=== PATIENT | female | born 1980 | race Caucasian/White ===

== ENCOUNTER → 2016-11-08 | Outpatient (CLI) | payer OTHER ==
[2016-04-09 13:38] VITALS: BP 112/55
[~2016-11-08] MED LIST: CLIN150C14 PO; CLON0.5T3 PO; TOPI25TA52 PO; VALS40TA2 PO
--- NOTE | 2016-11-08 12:38 | RAD ---
Lumbar spine 3 views 10/31/2016 Clinical indication: Low back pain. Comparison: MRI lumbar spine 08/24/2015 Findings: Normal lumbar alignment. No acute lumbar spine fracture or subluxation. Vertebral body heights and disc spaces are maintained. Right upper quadrant cholecystectomy clips. Impression: No acute lumbar spine fracture or subluxation.
== END | disposition home or self-care (01) ==
LOC: RAD 11:35
PROVIDERS: ATTEND Family Medicine
DX: M54.5 Low back pain (principal)
CPT/HCPCS: 72100

== ENCOUNTER 2017-01-09 12:29 | Emergency (ER) | payer OTHER ==
[~2017-01-09] VITALS: Ht 157.5 cm; Wt 94.3 kg
--- NOTE | 2017-01-09 13:12 | PHYS DOC ---
Past Medical History Past Medical History: Anxiety, Hypertension, Hypothyroid, Other Additional Past Medical Histor: obesity, chronic back pain, dental pain Past Surgical History: Cholecystectomy, Tubal ligation, Other Additional Past Surgical Histo: D&C Alcohol Use: Rarely Drug Use: None Adult General Chief Complaint Chief Complaint: ABDOMINAL PAIN HPI HPI Patient is a 36 year old female who presents with nausea vomiting left lower quadrant abdominal pain. She states all this started pressure 20 minutes prior to arrival to the ER. She states the pain was severe and she had come to the ER. She states she is close to having her menstrual cycle every menstrual cycle she's having is more more painful. She denies any diarrhea. She states she's minus all some blood in her vomit that was approximately a tablespoon. She states that she is very stressed out because she started a new job and she has a history of chronic back pain that she takes hydrocodone's for and over the last 3 weeks having take more and more hydrocodone for back pain. Review of Systems Review of Systems Constitutional: Denies fever or chills [] Eyes: Denies change in visual acuity, redness, or eye pain [] HENT: Denies nasal congestion or sore throat [] Respiratory: Denies cough or shortness of breath [] Cardiovascular: No additional information not addressed in HPI [] GI: Denies abdominal pain, nausea, vomiting, bloody stools or diarrhea [] : Denies dysuria or hematuria [] Musculoskeletal: Denies back pain or joint pain [] Integument: Denies rash or skin lesions [] Neurologic: Denies headache, focal weakness or sensory changes [] Endocrine: Denies polyuria or polydipsia [] Current Medications Current Medications Current Medications Medications (Trade) Dose Ordered Sig/Clayton Start Time Stop Time Status Last Admin Dose Admin Lorazepam (Ativan) 0.5 mg 1X ONCE 01/09/17 13:45 01/09/17 13:46 DC 01/09/17 14:25 0.5 MG Morphine Sulfate 2 mg PRN Q15MIN PRN 01/09/17 13:45 Ondansetron HCl (Zofran) 4 mg 1X ONCE 01/09/17 13:15 01/09/17 13:24 DC 01/09/17 13:50 4 MG Potassium Chloride (Klor-Con) 40 meq 1X ONCE 01/09/17 15:45 01/09/17 15:46 DC Sodium Chloride 1,000 ml @ 1,000 mls/hr Q1H 01/09/17 13:13 01/09/17 14:12 DC 01/09/17 13:50 1,000 MLS/HR Allergies Allergies Allergies Coded Allergies Type Severity Reaction Last Updated Verified acetaminophen Allergy Unknown Rash 06/04/15 Yes amoxicillin trihydrate Allergy Unknown Hives 10/14/13 Yes potassium clavulanate Allergy Unknown Hives 10/14/13 Yes propoxyphene Allergy Unknown Rash 06/04/15 Yes tramadol HCl Allergy Unknown Hives 10/14/13 Yes Physical Exam Physical Exam Constitutional: Well developed, well nourished, no acute distress, non-toxic appearance. [] HENT: Normocephalic, atraumatic, bilateral external ears normal, oropharynx moist, no oral exudates, nose normal. [] Eyes: PERRLA, EOMI, conjunctiva normal, no discharge. [] Neck: Normal range of motion, no tenderness, supple, no stridor. [] Cardiovascular:Heart rate regular rhythm, no murmur [] Lungs & Thorax: Bilateral breath sounds clear to auscultation [] Abdomen Pelvic Exam: Radiography Technician present Abdomen: Nontender External Genitalia: Normal Skin Speculum: Normal vaginal mucosa, normal cervical discharge Bimanual: No adnexal masses or tenderness, No CMT : Bowel sounds normal, soft, no tenderness, no masses, no pulsatile masses. [] Skin: Warm, dry, no erythema, no rash. [] Back: No tenderness, no CVA tenderness. [] Extremities: No tenderness, no cyanosis, no clubbing, ROM intact, no edema. [] Neurologic: Alert and oriented X 3, normal motor function, normal sensory function, no focal deficits noted. [] Psychologic: Affect normal, judgement normal, mood normal. [] Current Patient Data Vital Signs Vital Signs Date Time Temp Pulse Resp B/P (MAP) Pulse Ox O2 Delivery O2 Flow Rate FiO2 01/09/17 13:51 29 96 Room Air 01/09/17 12:53 97.4 76 113/58 (76) 97.4 Lab Values Laboratory Tests Test 01/09/17 12:53 01/09/17 13:06 01/09/17 13:26 Urine Collection Type Void Urine Color Yellow Urine Clarity Clear Urine pH 6.0 Urine Specific [place] 1.025 Urine Protein Negative mg/dL (NEG-TRACE) Urine Glucose (UA) Negative mg/dL (NEG) Urine Ketones (Stick) Negative mg/dL (NEG) Urine Blood Large (NEG) Urine Nitrite Negative (NEG) Urine Bilirubin Negative (NEG) Urine Urobilinogen Dipstick 0.2 mg/dL (0.2 mg/dL) Urine Leukocyte Esterase Large (NEG) Urine RBC Rare /HPF (0-2) Urine WBC Occ /HPF (0-4) Urine Squamous Epithelial Cells Many /LPF Urine Bacteria Many /HPF (0-FEW) Urine Mucus Marked /LPF POC Urine HCG, Qualitative Hcg negative (Negative) White Blood Count 9.9 x10^3/uL (4.0-11.0) Red Blood Count 4.42 x10^6/uL (3.50-5.40) Hemoglobin 13.3 g/dL (12.0-15.5) Hematocrit 38.9 % (36.0-47.0) Mean Corpuscular Volume 88 fL (79-100) Mean Corpuscular Hemoglobin 30 pg (25-35) Mean Corpuscular Hemoglobin Concent 34 g/dL (31-37) Red Cell Distribution Width 13.8 % (11.5-14.5) Platelet Count 340 x10^3/uL (140-400) Neutrophils (%) (Auto) 45 % (31-73) Lymphocytes (%) (Auto) 40 % (24-48) Monocytes (%) (Auto) 11 % (0-9) H Eosinophils (%) (Auto) 3 % (0-3) Basophils (%) (Auto) 0 % (0-3) Neutrophils # (Auto) 4.5 x10^3uL (1.8-7.7) Lymphocytes # (Auto) 4.0 x10^3/uL (1.0-4.8) Monocytes # (Auto) 1.1 x10^3/uL (0.0-1.1) Eosinophils # (Auto) 0.3 x10^3/uL (0.0-0.7) Basophils # (Auto) 0.0 x10^3/uL (0.0-0.2) Prothrombin Time 14.3 SEC (11.7-14.0) H Prothrombin Time INR 1.2 (0.8-1.1) H PTT 36 SEC (24-38) Sodium Level 138 mmol/L (136-145) Potassium Level 2.4 mmol/L (3.5-5.1) *L Chloride Level 98 mmol/L (98-107) Carbon Dioxide Level 32 mmol/L (21-32) Anion Gap 8 (6-14) Blood Urea Nitrogen 11 mg/dL (7-20) Creatinine 0.6 mg/dL (0.6-1.0) Estimated GFR (Cockcroft-Gault) 113.1 Glucose Level 125 mg/dL (70-99) H Calcium Level 8.6 mg/dL (8.5-10.1) Magnesium Level 1.9 mg/dL (1.8-2.4) Total Bilirubin 0.4 mg/dL (0.2-1.0) Direct Bilirubin 0.1 mg/dL (0.0-0.2) Aspartate Amino Transferase (AST) 32 U/L (15-37) Alanine Aminotransferase (ALT) 26 U/L (14-59) Alkaline Phosphatase 66 U/L (46-116) Creatine Kinase 348 U/L (26-192) H Total Protein 7.3 g/dL (6.4-8.2) Albumin 3.8 g/dL (3.4-5.0) Lipase 134 U/L (73-393) Laboratory Tests 01/09/17 13:26 Laboratory Tests 01/09/17 13:26 Microbiology 01/09/17 Wet Prep - Final, Complete Microbiology 01/09/17 Wet Prep - Final, Complete EKG EKG [] Radiology/Procedures Radiology/Procedures [facility] [address] [place] [address] IMAGING REPORT Signed PATIENT: NAYA FLOYD ACCOUNT: [id number] : 1980 LOCATION: ER AGE: 36 SEX: F EXAM STATUS: REG ER ORD. PHYSICIAN: MARII MORATAYA MD REASON: llq pain PROCEDURE: PELVIS W/TV EXAM: Pelvic ultrasound HISTORY: Left pelvic pain. COMPARISON: None. FINDINGS: Sonographic evaluation of the pelvis was performed transabdominally and transvaginally. The uterus is anteverted and measures 8.4 x 5.6 x 4.5 cm. The endometrial stripe measures 9 mm. A linear echogenicity adjacent to the deep surface of the endometrium at the fundus measures 2.0 x 0.4 cm and suggests a calcification. No masses are identified. There is no significant free fluid. The right ovary measures 3.3 x 2.6 x 1.9 cm. The left ovary measures 4.6 x 4.7 x 4.6 cm. There is a simple appearing cyst in left ovary measuring 4.4 x 4.0 x 3.8 cm. There is normal Doppler flow bilaterally. There are no suspicious lesions. IMPRESSION: 1. 4.4 x 4.0 cm simple appearing cyst in the left ovary. This is most likely benign. A follow could confirm resolution in 3 months if there is persistent concern. 2. 2.0 x 0.4 cm calcification within the uterine fundus, likely benign. DICTATED and SIGNED BY: TANNER THOMPSON MD DATE: 01/09/17 [id number] CC: MARII MORATAYA MD; LISSETTE ZAVALA MD ~ RUN DATE: 01/09/17 PAGE 1 RUN TIME: [id number] [facility] [address] [place] [address] Seymour Win M.D., Registered Dental Assistant PATIENT: NAYA FLOYD ACCT: [id number] LOC: ELVA U : [id number] AGE/SX: 36/F ROOM: REG : 01/09/[address]: MARII MORATAYA MD : 1980 BED: DIS : STATUS: [facility] TLOC: SPEC #: [id number] GUIDO: 01/09/17 STATUS: LUCY REQ #: [id number] RECD: 01/09/17 [facility] [place] DR: MARII MORATAYA MD SOURCE: VAGINAL ENTR: 01/09/[address]: LISSETTE ZAVALA MD [facility]: ORDERED: WET PREP COMMENTS: Has specimen been collected/obtained? Y Procedure Result WET PREP Final YEAST NONE SEEN TRICHOMONAS NONE SEEN CLUE CELLS CLUE CELLS PRESENT END OF REPORT Impressions: Hypokalemia Abdominal pain Chronic pain Course & Med Decision Making Course & Med Decision Making Pertinent Labs and Imaging studies reviewed. (See chart for details) Patient's potassium is 2.4 and I suggested she get admitted and spoke with Dr. Lala regarding admission. The patient has changed her mind and doesn't want to be admitted once a sign out AGAINST MEDICAL ADVICE. IV potassium was deleted and 40 mg by mouth was given and she's being discharged home with 40 mEq daily for the next 3 days. This should all 4.0 her magnesium level is normal. Patient was instructed return back to ER if she had any other concerns or changed her mind. She does have clue cells on her wet prep and she's being discharged with 7 days of Flagyl. I do not appreciate that she has a urinary tract infection based on her UA and/or symptoms. Dragon Disclaimer Dragon Disclaimer This electronic medical record was generated, in whole or in part, using a voice recognition dictation system. Departure Departure Disposition: AGAINST MEDICAL ADVICE Condition: STABLE Referrals: LISSETTE ZAVALA MD (PCP) Patient Instructions: Hypokalemia Additional Instructions: Your potassium level is extremely low it was recommended that he be admitted to the hospital have this replaced however you and decided to leave AGAINST MEDICAL ADVICE. Explained to you that you could have severe weakness and muscle rate down or other abnormalities because of your low potassium level. You stated you understood these risks and are willing to accept them and have signed the AGAINST MEDICAL ADVICE form. Your being sent home with prescriptions for potassium replacement that you will need to take over the next several days. You will need to call Dr. Blair's office and schedule a follow-up appointment with her. If your symptoms get worse, you have extreme weakness, or change her mind, or have other concerns please return back to the emergency department. You do have bacterial vaginosis based on your exam and you will need take Biaxin next 7 days. Please don't drink any alcohol this medicine as it will make you sick. Scripts Metronidazole (FLAGYL) 500 Mg Tablet 1 TAB PO BID, #14 TAB Prov: MARII MORATAYA MD 01/09/17 Potassium Chloride (POTASSIUM CHLORIDE) 20 Meq Tablet.er 40 MEQ PO DAILY for 3 Days, #6 TAB.SR Prov: MARII MORATAYA MD 01/09/17 MARII MORATAYA MD Jan 09, 2017 13:12
[2017-01-09] MEDS ORDERED: IV NORMAL SALINE 1000ML BAG 1,000 ML IV SCH (13:13)
[2017-01-09] MEDS ORDERED: ONDANSETRON PF 4 MG/2 ML VIAL. IV ONE (13:15)
[2017-01-09 13:35] LABS: BASO % 0 % (0-3); EOS % 3 % (0-3); HEMATOCRIT 38.9 % (36.0-47.0); HEMOGLOBIN 13.3 g/dL (12.0-15.5); LYMPH % 40 % (24-48); MEAN CORPUSCULAR HEMOGLOBIN 30 pg (25-35); MEAN CORPUSCULAR HGB CONC 34 g/dL (31-37); MEAN CORPUSCULAR VOLUME 88 fL (79-100); MONO % 11 % (0-9); NEUT % 45 % (31-73); PLATELET COUNT 340 x10^3/uL (140-400); RED BLOOD COUNT 4.42 x10^6/uL (3.50-5.40); RED CELL DISTRIBUTION WIDTH 13.8 % (11.5-14.5); WHITE BLOOD COUNT 9.9 x10^3/uL (4.0-11.0)
[2017-01-09] MEDS ORDERED: MORPHINE SULFATE 4 MG/ML DISP.SYRIN. IV PRN (13:45)
[2017-01-09] MEDS ORDERED: MORPHINE SULFATE 4 MG/ML DISP.SYRIN. IV/SQ PRN (13:45)
[2017-01-09 13:47] LABS: INR 1.2 (0.8-1.1); PROTHROMBIN TIME PATIENT 14.3 SEC (11.7-14.0)
[2017-01-09 13:53] LABS: BILIRUBIN,URINE NEGATIVE (NEG); GLUCOSE,URINE NEGATIVE (NEG); NITRITE,URINE NEGATIVE (NEG); PROTEIN,URINE NEGATIVE (NEG-TRACE); UROBILINOGEN,URINE 0.2 mg/dL (0.2 mg/dL)
[2017-01-09 13:56] LABS: ALBUMIN 3.8 g/dL (3.4-5.0); CALCIUM 8.6 mg/dL (8.5-10.1); CREATININE 0.6 mg/dL (0.6-1.0); DIRECT BILIRUBIN 0.1 mg/dL (0.0-0.2); GFR 113.1; TOTAL BILIRUBIN 0.4 mg/dL (0.2-1.0); TOTAL PROTEIN 7.3 g/dL (6.4-8.2)
[2017-01-09 14:01] LABS: POTASSIUM 2.4 mmol/L (3.5-5.1)
[2017-01-09 14:06] LABS: BACTERIA,URINE MANY /HPF (0-FEW); RBC,URINE RARE /HPF (0-2); SQUAMOUS EPITHELIAL CELL,UR MANY /LPF; WBC,URINE OCC /HPF (0-4)
--- NOTE | 2017-01-09 14:47 | RAD ---
EXAM: Pelvic ultrasound HISTORY: Left pelvic pain. COMPARISON: None. FINDINGS: Sonographic evaluation of the pelvis was performed transabdominally and transvaginally. The uterus is anteverted and measures 8.4 x 5.6 x 4.5 cm. The endometrial stripe measures 9 mm. A linear echogenicity adjacent to the deep surface of the endometrium at the fundus measures 2.0 x 0.4 cm and suggests a calcification. No masses are identified. There is no significant free fluid. The right ovary measures 3.3 x 2.6 x 1.9 cm. The left ovary measures 4.6 x 4.7 x 4.6 cm. There is a simple appearing cyst in left ovary measuring 4.4 x 4.0 x 3.8 cm. There is normal Doppler flow bilaterally. There are no suspicious lesions. IMPRESSION: 1. 4.4 x 4.0 cm simple appearing cyst in the left ovary. This is most likely benign. A follow could confirm resolution in 3 months if there is persistent concern. 2. 2.0 x 0.4 cm calcification within the uterine fundus, likely benign.
[2017-01-09] MEDS ORDERED: POTASSIUM CHLORIDE 10MEQ 100 ML IV SCH (15:00)
[2017-01-09 15:30] VITALS: BP 100/59
[2017-01-09] MEDS ORDERED: POTASSIUM CHLORIDE 20 MEQ TABLET.ER. PO ONE (15:45)
[2017-01-09] MEDS ORDERED: POTA20TA82 PO (15:47)
[2017-01-09] MEDS ORDERED: METR500T PO (15:52)
[2017-01-09] MEDS ORDERED: LEVO75TA5 PO (23:15)
[2017-01-09] MEDS ORDERED: LOSA100T6 PO (23:17)
[2017-01-09] MEDS ORDERED: HYDR-2766 PO (23:17)
[2017-01-09] MEDS ORDERED: CLON0.5T3 PO (23:17)
--- NOTE | 2017-01-13 14:51 | VNOTE ---
CALL BACK NOTE CALL BACK Microbiology 01/09/17 Wet Prep - Final, Complete 01/09/17 Urine Culture - Final, Complete 01/09/17 Urine Culture Result 1 (ROME) - Final, Complete 01/09/17 Antimicrobic Susceptibility - Final, Complete Call placed to patient's contact information provided during her visit on 2016. Patient did not answer phone. Left directions for patient to call back [facility] on her voicemail in order to discuss culture results and also provided a contact phone number the patient can contact us at. JAKY WELLS Jan 13, 2017 14:51
--- NOTE | 2017-01-14 13:12 | VNOTE ---
CALL BACK NOTE CALL BACK Microbiology 01/09/17 Wet Prep - Final, Complete 01/09/17 Urine Culture - Final, Complete 01/09/17 Urine Culture Result 1 (ROME) - Final, Complete 01/09/17 Antimicrobic Susceptibility - Final, Complete Spoke with patient via phone at around noon on January 14, 2017 at [place] emergency department. Will prescribe ciprofloxacin 500 mg. Take one tablet every 12 hours 7 days. Dispensed 14 tablets. No refills. Pharmacy # . Discussed follow-up with outpatient PCP. Discussed reasons to return to the ED. Patient understands and agrees with plan. JAKY WELLS Jan 14, 2017 13:12
== END 2017-01-09 16:00 | disposition left against medical advice (07) ==
LOC: ER 12:29
DX: R10.32 Left lower quadrant pain (principal); E87.6 Hypokalemia; G89.29 Other chronic pain; I10 Essential (primary) hypertension; E03.9 Hypothyroidism, unspecified; E66.9 Obesity, unspecified; Z68.38 Body mass index [BMI] 38.0-38.9, adult; Z90.49 Acquired absence of other specified parts of digestive tract; Z98.51 Tubal ligation status; Z88.6 Allergy status to analgesic agent; Z88.1 Allergy status to other antibiotic agents; Z88.8 Allergy status to other drugs, medicaments and biological substances
CPT/HCPCS: 36415; 76830; 76856; 80048; 80076; 81001; 81025; 82550; 83690; 83735; 85025; 85610; 85730; 87086; 87186; 87491; 87591; 96361; 96374; 96375; 99285; J2060; J2270; J2405; J7030; Q0111

== ENCOUNTER 2017-01-09 20:00 | Observation (INO) | payer OTHER ==
[~2017-01-09] VITALS: Ht 157.5 cm; Wt 95.7 kg
[~2017-01-09 20:00] MED LIST changes: +METR500T PO; +POTA20TA82 PO
--- NOTE | 2017-01-09 20:51 | PHYS DOC ---
Past Medical History Past Medical History: Anxiety, Hypertension, Hypothyroid, Kidney Stone, Other Additional Past Medical Histor: obesity, chronic back pain, dental pain Past Surgical History: Cholecystectomy, Tubal ligation, Other Additional Past Surgical Histo: D&C Alcohol Use: Occasionally Drug Use: None Adult General Chief Complaint Chief Complaint: HYPOKALEMIA HPI HPI Patient is a 36 year old complains of myalgias and malaise" and "feeling sick" . Patient was seen earlier in the day and this ED and found to be hypokalemic. Patient was advised that she was can be admitted for potassium infusion but the patient decided to leave AGAINST MEDICAL ADVICE. The patient now has changed her mind and returns for admission. She has no new complaints. Review of Systems Review of Systems Constitutional: Denies fever or chills [] Eyes: Denies change in visual acuity, redness, or eye pain [] HENT: Denies nasal congestion or sore throat [] Respiratory: Denies cough or shortness of breath [] Cardiovascular: No chest pain GI: Denies , nausea, vomiting, bloody stools or diarrhea . Low abdominal pain Musculoskeletal: Muscle aches Integument: Denies rash or skin lesions [] Neurologic: Denies headache, focal weakness or sensory changes [] Endocrine: Denies polyuria or polydipsia [] Allergies Allergies Allergies Coded Allergies Type Severity Reaction Last Updated Verified acetaminophen Allergy Unknown Rash 06/04/15 Yes amoxicillin trihydrate Allergy Unknown Hives 10/14/13 Yes potassium clavulanate Allergy Unknown Hives 10/14/13 Yes propoxyphene Allergy Unknown Rash 06/04/15 Yes tramadol HCl Allergy Unknown Hives 10/14/13 Yes Physical Exam Physical Exam Constitutional: Well developed, well nourished, no acute distress, non-toxic appearance. [] HENT: Normocephalic, atraumatic, oropharynx moist, no oral exudates, nose normal. [] Eyes: EOMI, conjunctiva normal, no discharge. [] Neck: Normal range of motion, no tenderness, supple, no stridor. [] Cardiovascular:Heart rate regular rhythm, no murmur him a go pulses, normal perfusion Lungs & Thorax: Bilateral breath sounds clear to auscultation, no tachypnea Abdomen: Bowel sounds normal, soft, very mild tenderness low abdomen without guarding or rebound, no masses, no pulsatile masses. [] Skin: Warm, dry, no erythema, no rash. [] Back: No tenderness, no CVA tenderness. No murmur range of motion Extremities: No tenderness, no cyanosis, ROM intact, no edema. [] Neurologic: Alert and oriented X 3, normal motor function, no focal deficits noted. [] Psychologic: Affect normal, judgement normal, mood normal. [] Current Patient Data Vital Signs Vital Signs Date Time Temp Pulse Resp B/P (MAP) Pulse Ox O2 Delivery O2 Flow Rate FiO2 01/09/17 20:09 98.0 77 16 107/56 (73) 98 Room Air 98.0 EKG EKG 2018 77, no normal sinus rhythm, no STEMI[] Radiology/Procedures Radiology/Procedures [] Course & Med Decision Making Course & Med Decision Making Pertinent Labs and Imaging studies reviewed. (See chart for details) [] Dragon Disclaimer Dragon Disclaimer This electronic medical record was generated, in whole or in part, using a voice recognition dictation system. Departure Departure Impression: Primary Impression: Hypokalemia Additional Impression: Myalgia Disposition: ADMITTED INPATIENT Admitting Physician: Josey Lala Condition: STABLE Referrals: LISSETTE ZAVALA MD (PCP) Problem Qualifiers Key MAY MD Jan 09, 2017 20:51
[2017-01-09] MEDS ORDERED: ONDANSETRON PF 4 MG/2 ML VIAL. IV PRN (21:00)
[2017-01-09] MEDS ORDERED: MORPHINE SULFATE 4 MG/ML DISP.SYRIN. IV PRN (21:15)
[2017-01-09] MEDS ORDERED: IBUPROFEN 400 MG TABLET. PO ONE (21:30)
[2017-01-09 23:00] VITALS: BP 98/52
[2017-01-09] MEDS ORDERED: LEVO75TA5 PO (23:15)
[2017-01-09] MEDS ORDERED: CLON0.5T3 PO (23:17)
[2017-01-09] MEDS ORDERED: LOSA100T6 PO (23:17)
[2017-01-09] MEDS ORDERED: HYDR-2766 PO (23:17)
[2017-01-10] MEDS ORDERED: INFLUENZA VAX SCREEN BY RX. MC ONE
[2017-01-10 03:14] VITALS: BP 93/53
[2017-01-10 04:43] LABS: BASO # 0.1 x10^3/uL (0.0-0.2); BASO % 1 % (0-3); EOS % 3 % (0-3); HEMATOCRIT 37.5 % (36.0-47.0); HEMOGLOBIN 12.4 g/dL (12.0-15.5); LYMPH # 3.3 x10^3/uL (1.0-4.8); LYMPH % 29 % (24-48); MEAN CORPUSCULAR HEMOGLOBIN 30 pg (25-35); MEAN CORPUSCULAR HGB CONC 33 g/dL (31-37); MEAN CORPUSCULAR VOLUME 90 fL (79-100); MONO % 9 % (0-9); NEUT % 59 % (31-73); PLATELET COUNT 335 x10^3/uL (140-400); RED BLOOD COUNT 4.19 x10^6/uL (3.50-5.40); RED CELL DISTRIBUTION WIDTH 13.6 % (11.5-14.5); WHITE BLOOD COUNT 11.2 x10^3/uL (4.0-11.0)
[2017-01-10 04:57] LABS: CALCIUM 8.2 mg/dL (8.5-10.1); CREATININE 0.7 mg/dL (0.6-1.0); GFR 94.7; POTASSIUM 3.4 mmol/L (3.5-5.1)
[2017-01-10 07:00] VITALS: BP 100/60
--- NOTE | 2017-01-10 07:17 | EKG ---
[facility] [address] [place] [address] Test Date: 2017-01-09 Test Time: 20:12:03 Pat Name: NAYA FLOYD Department: Room: Gender: F Back End Developer: : 1980 Requested By: Key MAY Order Number: [id number] Reading MD: Measurements Intervals [place] Rate: 77 P: 33 IN: 134 QRS: 24 QRSD: 92 T: 51 QT: 422 QTc: 480 Interpretive Statements SINUS RHYTHM QRS(T) CONTOUR ABNORMALITY CANNOT RULE OUT ANTEROSEPTAL MYOCARDIAL DAMAGE PROLONGED QT RI6.01 Unconfirmed report No previous ECG available for comparison
[2017-01-10] MEDS ORDERED: LOSARTAN POTASSIUM 50 MG TABLET. PO SCH (09:00)
[2017-01-10] MEDS ORDERED: FLU VACC QS2017-18 (36MOS+)/PF 0.5 ML SYRINGE. VAX IM ONE (09:00)
[2017-01-10] MEDS ORDERED: clonazePAM 0.5 MG TABLET PO PRN (09:00)
[2017-01-10] MEDS ORDERED: HYDROcodone/APAP 10/325 1 TAB TABLET PO PRN (09:00)
[2017-01-10] MEDS ORDERED: LEVOTHYROXINE 75 MCG TABLET PO SCH (10:30)
[2017-01-10 11:08] VITALS: BP 114/64
--- NOTE | 2017-01-10 12:26 | PDOC3 ---
DATE OF ADMISSION Date of Admission 01/09/17 DATE OF DISCHARGE Discharge Date 01/10/17 PROBLEM LIST Problems: (1) Hypokalemia CONSULTS Consults none PROCEDURES Procedures none LABS Labs Laboratory Tests Test 01/10/17 04:26 White Blood Count 11.2 x10^3/uL (4.0-11.0) Red Blood Count 4.19 x10^6/uL (3.50-5.40) Hemoglobin 12.4 g/dL (12.0-15.5) Hematocrit 37.5 % (36.0-47.0) Mean Corpuscular Volume 90 fL (79-100) Mean Corpuscular Hemoglobin 30 pg (25-35) Mean Corpuscular Hemoglobin Concent 33 g/dL (31-37) Red Cell Distribution Width 13.6 % (11.5-14.5) Platelet Count 335 x10^3/uL (140-400) Neutrophils (%) (Auto) 59 % (31-73) Lymphocytes (%) (Auto) 29 % (24-48) Monocytes (%) (Auto) 9 % (0-9) Eosinophils (%) (Auto) 3 % (0-3) Basophils (%) (Auto) 1 % (0-3) Neutrophils # (Auto) 6.6 x10^3uL (1.8-7.7) Lymphocytes # (Auto) 3.3 x10^3/uL (1.0-4.8) Monocytes # (Auto) 1.0 x10^3/uL (0.0-1.1) Eosinophils # (Auto) 0.3 x10^3/uL (0.0-0.7) Basophils # (Auto) 0.1 x10^3/uL (0.0-0.2) Sodium Level 142 mmol/L (136-145) Potassium Level 3.4 mmol/L (3.5-5.1) Chloride Level 105 mmol/L (98-107) Carbon Dioxide Level 32 mmol/L (21-32) Anion Gap 5 (6-14) Blood Urea Nitrogen 11 mg/dL (7-20) Creatinine 0.7 mg/dL (0.6-1.0) Estimated GFR (Cockcroft-Gault) 94.7 Glucose Level 125 mg/dL (70-99) Calcium Level 8.2 mg/dL (8.5-10.1) MEDICATIONS Medications Medications reviewed and reconciled for discharge. CHEIF COMPLAINT Cheif Complaint she presented to the ER with abdominal pain and was found to have an ovarian cyst but was noted to be severely hypokalemic and brought into the hospital for potassium replacement and cardiac monitoring. This am her K+ is 3.4 and her cardiac nurse has been NSR. She is taking PO well and not having any diarrhea or vomiting to suggest there will be ongoing potassium loss. She has been dieting and losing weight PAST MEDICAL HISTORY PMH hypothyroidism, obesity, chronic pain, hx of seizures (last 2009), anxiety/ depression, psoriasis PAST SURGICAL HISTORY PSH joshua, miscarriage x 4 SOCIAL HISTORY SH , former smoker FAMILY HISTORY FH mother , father and brother A&W ALLERGIES Allergies Allergies Coded Allergies Type Severity Reaction Last Updated Verified amoxicillin trihydrate Allergy Intermediate Hives 01/09/17 Yes potassium clavulanate Allergy Intermediate Hives 01/09/17 Yes propoxyphene Allergy Intermediate Rash 01/09/17 Yes tramadol HCl Allergy Intermediate Hives 01/09/17 Yes MEDICATIONS Meds Medications reviewed. REVIEW OF SYSTEMS ROS A 14 point ROS was completed with the following noted as positive: left ovarian pain Other systems reviewed and negative. PHYSICAL EXAM Subjective LLQ pain now controlled, eating, slept well, no chest pain or SOA or other new symptoms Objective A&O NAD HRRR, monitor NSR without arrhythmia LCTA Abd with mild LLQ tenderness skin without rash Strength normal Vital Signs Vital Signs Date Time Temp Pulse Resp B/P (MAP) Pulse Ox O2 Delivery O2 Flow Rate FiO2 01/10/17 11:08 98.6 89 20 114/64 (81) 98 Room Air 98.6 Assessment hypokalemia [facility] NOTE [facility] Note as above FOLLOW UP F/U [address] Blair DISPOSITION Dispo home after another po dose of potassium this am, outpatient f/u of labs and ovarian cyst Gracie RICHTER MD Jan 10, 2017 12:26
[2017-01-10] MEDS ORDERED: POTASSIUM CHLORIDE 10 MEQ TABLET.ER. PO ONE (14:30)
== END 2017-01-10 12:00 | disposition home or self-care (01) ==
LOC: ER 20:00 → 6 SOUTH 20:46
PROVIDERS: ADMIT Family Medicine; ATTEND Family Medicine
DX: E87.6 Hypokalemia (principal); N83.209 Unspecified ovarian cyst, unspecified side; E03.9 Hypothyroidism, unspecified; E66.9 Obesity, unspecified; G89.29 Other chronic pain; I10 Essential (primary) hypertension; F41.9 Anxiety disorder, unspecified; Z87.442 Personal history of urinary calculi; Z87.891 Personal history of nicotine dependence; Z23 Encounter for immunization
CPT/HCPCS: 36415; 80048; 85025; 90471; 90686; 93005; 96374; 99285; G0378; J2270; G0379

== ENCOUNTER 2018-02-15 12:39 | Emergency (ER) | payer OTHER ==
[~2018-02-15] VITALS: Ht 157.5 cm; Wt 79.4 kg
[~2018-02-15 12:39] MED LIST changes: +CLON0.5T11 PO; -CLON0.5T3 PO; +HYDR-2766 PO; +LEVO75TA5 PO; +LOSA100T7 PO
[2018-02-15 12:53] VITALS: BP 130/68
[2018-02-15 13:25] LABS: BILIRUBIN,URINE NEGATIVE (NEG); CLARITY,URINE CLEAR; COLOR,URINE YELLOW; NITRITE,URINE NEGATIVE (NEG); PROTEIN,URINE NEGATIVE (NEG-TRACE); UROBILINOGEN,URINE 0.2 mg/dL (0.2 mg/dL)
[2018-02-15 13:40] LABS: BACTERIA,URINE 0 /HPF (0-FEW); RBC,URINE 0 /HPF (0-2); SQUAMOUS EPITHELIAL CELL,UR FEW /LPF; WBC,URINE 0 /HPF (0-4)
[2018-02-15] MEDS ORDERED: METH4TAB2 PO (14:05)
[2018-02-15] MEDS ORDERED: CYCL10TA2 PO (14:05)
--- NOTE | 2018-02-15 14:05 | PHYS DOC ---
Past Medical History Past Medical History: Anxiety, Hypertension, Hypothyroid, Kidney Stone, Other Additional Past Medical Histor: obesity, chronic back pain, dental pain Past Surgical History: Cholecystectomy, Tubal ligation, Other Additional Past Surgical Histo: D&C Alcohol Use: Occasionally Drug Use: None Adult General Chief Complaint Chief Complaint: BACK PAIN - NO INJURY HPI HPI Patient is a 37 year old female with history of hypertension, anxiety, hypothyroidism, who presents today complaining of intermittent episodes of 7 out of 10 sharp bilateral mid back pain that has been going on since January after she lifted a heavy tot at work. Patient states the pain is worse when she tries to lift anything above her head. Patient states she was seen at [facility], she states they did not do any x-rays because they thought her information was too high to her back. Patient states she followed up with [facility]. She states she was evaluated. She states she has continued to have the pain. Patient denies any nausea vomiting. Denies any pain radiating to bilateral lower extremities. Denies any loss of bowel bladder function. She is also requesting we check her urine to make sure she does not have a kidney infection. She has no urgency frequency dysuria. Review of Systems Review of Systems Constitutional: Denies fever or chills [] Eyes: Denies change in visual acuity, redness, or eye pain [] HENT: Denies nasal congestion or sore throat [] Respiratory: Denies cough or shortness of breath [] Cardiovascular: No additional information not addressed in HPI [] GI: Denies abdominal pain, nausea, vomiting, bloody stools or diarrhea [] : Denies dysuria or hematuria [] Musculoskeletal: Reports mid back pain. Integument: Denies rash or skin lesions [] Neurologic: Denies headache, focal weakness or sensory changes [] All other systems were reviewed and found to be within normal limits, except as documented in this note. Current Medications Current Medications Current Medications Medications (Trade) Dose Ordered Sig/Clayton Start Time Stop Time Status Last Admin Dose Admin Acetaminophen/ Hydrocodone Bitart (Lortab 5/325) 1 tab 1X ONCE 02/15/18 14:15 02/15/18 14:16 Cyclobenzaprine HCl (Flexeril) 10 mg 1X ONCE 02/15/18 14:15 02/15/18 14:16 Allergies Allergies Allergies Coded Allergies Type Severity Reaction Last Updated Verified amoxicillin trihydrate Allergy Intermediate Hives 01/09/17 Yes potassium clavulanate Allergy Intermediate Hives 01/09/17 Yes propoxyphene Allergy Intermediate Rash 01/09/17 Yes tramadol HCl Allergy Intermediate Hives 01/09/17 Yes Physical Exam Physical Exam Constitutional: Well developed, well nourished, no acute distress, non-toxic appearance. [] HENT: Normocephalic, atraumatic, bilateral external ears normal, oropharynx moist, no oral exudates, nose normal. [] Eyes: PERRLA, EOMI, conjunctiva normal, no discharge. [] Neck: Normal range of motion, no tenderness, supple, no stridor. [] Cardiovascular:Heart rate regular rhythm, no murmur [] Lungs & Thorax: Bilateral breath sounds clear to auscultation [] Abdomen: Bowel sounds normal, soft, no tenderness, no masses, no pulsatile masses. [] Skin: Warm, dry, no erythema, no rash. [] Back: No tenderness, no CVA tenderness. [] Extremities: No tenderness, no cyanosis, no clubbing, ROM intact, no edema. [] Neurologic: Alert and oriented X 3, normal motor function, normal sensory function, no focal deficits noted. [] Psychologic: Affect normal, judgement normal, mood normal. [] Current Patient Data Vital Signs Vital Signs Date Time Temp Pulse Resp B/P (MAP) Pulse Ox O2 Delivery O2 Flow Rate FiO2 02/15/18 12:53 97.4 89 18 130/68 (88) 99 Room Air 97.4 Lab Values Laboratory Tests Test 02/15/18 13:00 Urine Collection Type Unknown Urine Color Yellow Urine Clarity Clear Urine pH 7.0 Urine Specific [place] 1.020 Urine Protein Negative mg/dL (NEG-TRACE) Urine Glucose (UA) Negative mg/dL (NEG) Urine Ketones (Stick) Negative mg/dL (NEG) Urine Blood Negative (NEG) Urine Nitrite Negative (NEG) Urine Bilirubin Negative (NEG) Urine Urobilinogen Dipstick 0.2 mg/dL (0.2 mg/dL) Urine Leukocyte Esterase Negative (NEG) Urine RBC 0 /HPF (0-2) Urine WBC 0 /HPF (0-4) Urine Squamous Epithelial Cells Few /LPF Urine Bacteria 0 /HPF (0-FEW) EKG EKG [] Radiology/Procedures Radiology/Procedures [] Course & Med Decision Making Course & Med Decision Making Pertinent Labs and Imaging studies reviewed. (See chart for details) This is a 37-year-old. Patient presenting to the ED today with mid back pain that sounds like muscle strain, she lifted a heavy talked at work around February 02, 2018. Patient has no cauda equina syndrome symptoms. She has been seen at [facility] as well as by [facility]. We talked about x-rays benefits and risk. We agreed she does not need x-rays today. She requested a urine to be checked, no infection noted. Discharge and cyclobenzaprine and Medrol Dosepak. Instructed to continue following up with her PCP as well as work[facility]. Paloma Disclaimer Dragon Disclaimer This electronic medical record was generated, in whole or in part, using a voice recognition dictation system. Departure Departure Impression: Primary Impression: Acute thoracic myofascial strain Disposition: HOME, SELF-CARE Condition: STABLE Referrals: LISSETTE COLVIN MD (PCP) follow up in 1-2 weeks Patient Instructions: Thoracic Strain, [id number] Additional Instructions: You were evaluated in the emergency room for back pain. Continue following up with your own doctor as well as [facility]. Take the prescribed medications as ordered. Come back to the ED at any point symptoms worsen. Scripts Cyclobenzaprine Hcl (CYCLOBENZAPRINE HCL) 10 Mg Tablet 1 TAB PO TID, #30 TAB Prov: ROCCO GURROLA APRN 02/15/18 Methylprednisolone (MEDROL) 4 Mg Tab.ds.pk 1 PKG PO UD, #1 PKG Prov: ROCCO GURROLA APRN 02/15/18 Problem Qualifiers Primary Impression: Acute thoracic myofascial strain Encounter type: subsequent encounter Qualified Codes: S29.019D - Strain of muscle and tendon of unspecified wall of thorax, subsequent encounter ROCCO GURROLA APRN Feb 15, 2018 14:05
[2018-02-15] MEDS ORDERED: CYCLOBENZAPRINE 10 MG TABLET. PO ONE (14:15)
[2018-02-15] MEDS ORDERED: HYDROcodone/APAP 5/325MG 1 TAB TABLET PO ONE (14:15)
== END 2018-02-15 14:17 | disposition home or self-care (01) ==
LOC: ER 12:39
DX: S29.019D Strain of muscle and tendon of unspecified wall of thorax, subsequent encounter (principal); E03.9 Hypothyroidism, unspecified; I10 Essential (primary) hypertension; G89.29 Other chronic pain; Z90.49 Acquired absence of other specified parts of digestive tract; Z98.51 Tubal ligation status; Z88.1 Allergy status to other antibiotic agents; Z88.8 Allergy status to other drugs, medicaments and biological substances; X50.9XXA Other and unspecified overexertion or strenuous movements or postures, initial encounter; Y93.89 Activity, other specified; Y92.69 Other specified industrial and construction area as the place of occurrence of the external cause; Y99.0 Civilian activity done for income or pay
CPT/HCPCS: 81001; 99283

== ENCOUNTER 2018-03-24 18:58 | Emergency (ER) | payer OTHER ==
[~2018-03-24] VITALS: Ht 157.5 cm; Wt 81.6 kg
[~2018-03-24 18:58] MED LIST changes: +CYCL10TA2 PO; -HYDR-2766 PO; +HYDR-2769 PO; +LOSA100T14 PO; -LOSA100T7 PO; +METH4TAB2 PO
[2018-03-24 19:05] VITALS: BP 117/67
[2018-03-24] MEDS: clonazePAM 0.5 MG TABLET PO ONE (20:13)
--- NOTE | 2018-03-24 20:44 | PHYS DOC ---
Past Medical History Past Medical History: Anxiety, Hypertension, Hypothyroid, Kidney Stone, Other Additional Past Medical Histor: obesity, chronic back pain, dental pain Past Surgical History: Cholecystectomy, Tubal ligation, Other Additional Past Surgical Histo: D&C Alcohol Use: Occasionally Drug Use: None Adult General Chief Complaint Chief Complaint: ANXIETY/PANIC ATTACK HPI HPI Patient is a 37 year old female with history of anxiety who presents today complaining of chest pressure that began couple minutes prior to coming to the ED due to anxiety. Patient states she ran out of her clonazepam a week ago because she tried to transfer her medications from one pharmacy to the other. She states she was able to transfer everything except clonazepam. Patient denies any suicidal or homicidal ideations. Review of Systems Review of Systems Constitutional: Denies fever or chills [] Eyes: Denies change in visual acuity, redness, or eye pain [] HENT: Denies nasal congestion or sore throat [] Respiratory: Denies cough or shortness of breath [] Cardiovascular: No additional information not addressed in HPI [] GI: Denies abdominal pain, nausea, vomiting, bloody stools or diarrhea [] : Denies dysuria or hematuria [] Musculoskeletal: Denies back pain or joint pain [] Integument: Denies rash or skin lesions [] Neurologic: Denies headache, focal weakness or sensory changes [] Pysch: Reports anxiety attack All other systems were reviewed and found to be within normal limits, except as documented in this note. Current Medications Current Medications Current Medications Medications (Trade) Dose Ordered Sig/Clayton Start Time Stop Time Status Last Admin Dose Admin Clonazepam (KlonoPIN) 1 mg 1X ONCE 03/24/18 20:15 03/24/18 20:16 DC 03/24/18 20:13 1 MG Allergies Allergies Allergies Coded Allergies Type Severity Reaction Last Updated Verified amoxicillin trihydrate Allergy Intermediate Hives 01/09/17 Yes potassium clavulanate Allergy Intermediate Hives 01/09/17 Yes propoxyphene Allergy Intermediate Rash 01/09/17 Yes tramadol HCl Allergy Intermediate Hives 01/09/17 Yes Physical Exam Physical Exam Constitutional: Well developed, well nourished, no acute distress, non-toxic appearance. [] HENT: Normocephalic, atraumatic, bilateral external ears normal, oropharynx moist, no oral exudates, nose normal. [] Eyes: PERRLA, EOMI, conjunctiva normal, no discharge. [] Neck: Normal range of motion, no tenderness, supple, no stridor. [] Cardiovascular:Heart rate regular rhythm, no murmur [] Lungs & Thorax: Bilateral breath sounds clear to auscultation [] Abdomen: Bowel sounds normal, soft, no tenderness, no masses, no pulsatile masses. [] Skin: Warm, dry, no erythema, no rash. [] Back: No tenderness, no CVA tenderness. [] Extremities: No tenderness, no cyanosis, no clubbing, ROM intact, no edema. [] Neurologic: Alert and oriented X 3, normal motor function, normal sensory function, no focal deficits noted. [] Psychologic: appears anxious Current Patient Data Vital Signs Vital Signs Date Time Temp Pulse Resp B/P (MAP) Pulse Ox O2 Delivery O2 Flow Rate FiO2 03/24/18 19:05 97.8 61 20 117/67 (84) 100 Room Air 97.8 EKG EKG 19:[address] Conrad sinus rhythm heart rate 64 no STEMI Radiology/Procedures Radiology/Procedures [] Course & Med Decision Making Course & Med Decision Making Pertinent Labs and Imaging studies reviewed. (See chart for details) This is a 37-year-old female patient with history of anxiety presenting to the ED today complaining of an anxiety attack. She was unable to transfer the her clonazepam to another pharmacy and has been out of the medication for 1 week. EKG is normal. Given 1 dose of clonazepam in the ED. Discharged to home and instructed to go to the pharmacy where the original prescription is and pick it up. Dragon Disclaimer Dragon Disclaimer This electronic medical record was generated, in whole or in part, using a voice recognition dictation system. Departure Departure Impression: Primary Impression: Anxiety Disposition: 01 HOME, SELF-CARE Condition: STABLE Referrals: LISSETTE COLVIN MD (PCP) Follow up in the next 7 days Patient Instructions: Anxiety and Panic Attacks, [id number] Additional Instructions: You were evaluated for anxiety in the emergency room. You need to go to the pharmacy that has your prescription and strip picker the medications. Follow-up with your own doctor as needed. ROCCO GURROLA APRN Mar 24, 2018 20:43
--- NOTE | 2018-03-24 22:00 | EKG ---
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
== END 2018-03-24 20:48 | disposition home or self-care (01) ==
LOC: ER 18:58
DX: F41.9 Anxiety disorder, unspecified (principal); R07.89 Other chest pain; E03.9 Hypothyroidism, unspecified; I10 Essential (primary) hypertension; G89.29 Other chronic pain; E66.9 Obesity, unspecified; Z68.32 Body mass index [BMI] 32.0-32.9, adult
CPT/HCPCS: 93005; 99284

== ENCOUNTER → 2018-05-05 | Outpatient (CLI) | payer OTHER ==
--- NOTE | 2018-05-05 09:03 | KCIC ---
ABDOMEN LTD History: Right upper quadrant pain Comparison: None. Findings: Multiple sonographic images of the abdomen are submitted. There is no obvious abnormality in the region of pancreas although suboptimally seen due to bowel gas. There has been cholecystectomy. Common bile duct is within normal limits at 0.2 cm. No focal hepatic lesion is demonstrated. Hepatic echotexture is within normal limits. Right lobe of the liver measured 15.5 cm longitudinal. Right kidney measured 11 x 5.2 x 4.6 cm, no hydronephrosis. There is segmental visualization of the inferior vena cava. Impression: 1. No significant abnormality is demonstrated. There has been cholecystectomy. Electronically signed by: Lorne Brooks MD (05/05/2018 8:58 AM) [id number]
--- NOTE | 2018-05-05 10:41 | KCIC ---
MRI Lumbar Spine without contrast History: Lumbago, left sciatica, left lower extremity pain Technique: Multiplanar, multi sequential noncontrast MR imaging was performed of the lumbar spine. Comparison: August 24, 2015 Findings: There is motion degradation. Most inferior fully formed intervertebral disc space is considered L5-S1 for this report. Vertebral body stature and AP alignment are overall maintained. There is again mild degenerative disc disease at what is considered L5-S1, mild disc desiccation L3-4 and L4-5. Conus terminates at T12-L1. L1-L2: Spinal canal and neural foramina are adequate. L2-L3: There is shallow protrusion in the left lateral recess somewhat more prominent, mild indentation upon the ventral thecal sac without significant spinal stenosis or neural impingement. Neural foramina are adequate. L3-L4: Spinal canal and neural foramina are overall adequate. L4-L5: There is now very shallow more central protrusion without neural impingement or spinal stenosis. There is negligible disc osteophyte complex in the inferior neural foramina. Neural foramina are adequate. L5-S1: There is facet degenerative change. Spinal canal is adequate. Neural foramina are overall adequate. Impression: 1. Most inferior fully formed intervertebral disc space is considered L5-S1 for this report. There is mild degenerative disc disease at what is considered L5-S1. There is shallow protrusion in the left lateral recess at L2-3 somewhat more prominent than previously without significant neural impingement or spinal stenosis. Electronically signed by: Lorne Brooks MD (05/05/2018 10:36 AM) [id number]
== END | disposition home or self-care (01) ==
LOC: KCIC US 08:06
PROVIDERS: ATTEND Family Medicine
DX: M51.37 Other intervertebral disc degeneration, lumbosacral region (principal); M51.26 Other intervertebral disc displacement, lumbar region
CPT/HCPCS: 72148; 76705

== ENCOUNTER 2018-08-15 14:19 | Emergency (ER) | payer MEDICAID, OTHER ==
[~2018-08-15] VITALS: Ht 157.5 cm; Wt 90.7 kg
[2018-08-15 14:52] VITALS: BP 113/80
[2018-08-15] MEDS ORDERED: KETOROLAC 60 MG/2 ML VIAL. IM ONE (15:30)
--- NOTE | 2018-08-15 15:35 | PHYS DOC ---
Past Medical History Past Medical History: Anxiety, Hypertension, Hypothyroid, Kidney Stone, Other Additional Past Medical Histor: obesity, chronic back pain, dental pain Past Surgical History: Cholecystectomy, Tubal ligation, Other Additional Past Surgical Histo: D&C Additional Information: non smoker Alcohol Use: Occasionally Drug Use: None Adult General Chief Complaint Chief Complaint: BACK PAIN OR INJURY HPI HPI The patient is a 37-year-old female presents to the ER today for the complaint of dysuria. She is also wanting to be seen for her chronic pain. The dysuria has been ongoing for a month. The chronic pain has been ongoing for years. The patient rates the severity of her pain is 9 out of 10. She states that she can't describe what the pain feels like. Patient is currently being seen by Dr. Colvin her primary care doctor for her pain medicine. She had a prescription of 7.5 mg Lortab filled on July 20. This was a 30 day supply. She states she is out and hasn't had any in several days. Her eyes are dilated on examination. Patient has had numerous other pain medication scripts filled at different places for 2018 several of which are 30 days in length. Review of Systems Review of Systems Constitutional: Denies fever or chills [] Eyes: Denies change in visual acuity, redness, or eye pain [] HENT: Denies nasal congestion or sore throat [] Respiratory: Denies cough or shortness of breath [] Cardiovascular: No additional information not addressed in HPI [] GI: Denies abdominal pain, nausea, vomiting, bloody stools or diarrhea [] : Reports dysuria and frequency. Denies hematuria [] Musculoskeletal: Reports chronic back pain. Denies joint pain [] Integument: Denies rash or skin lesions [] Neurologic: Denies headache, focal weakness or sensory changes [] Endocrine: Reports polyuria denies polydipsia [] Complete systems were reviewed and found to be within normal limits, except as documented in this note. Current Medications Current Medications Current Medications Medications (Trade) Dose Ordered Sig/Clayton Start Time Stop Time Status Last Admin Dose Admin Ketorolac Tromethamine (Toradol Im) 30 mg 1X ONCE 08/15/18 15:30 08/15/18 15:31 DC 08/15/18 15:43 30 MG Allergies Allergies Allergies Coded Allergies Type Severity Reaction Last Updated Verified amoxicillin trihydrate Allergy Intermediate Hives 01/09/17 Yes potassium clavulanate Allergy Intermediate Hives 01/09/17 Yes propoxyphene Allergy Intermediate Rash 01/09/17 Yes tramadol HCl Allergy Intermediate Hives 01/09/17 Yes Physical Exam Physical Exam Constitutional: Well developed, well nourished, no acute distress, non-toxic appearance. [] HENT: Normocephalic, atraumatic, bilateral external ears normal, oropharynx moist, no oral exudates, nose normal. [] Eyes: PERRLA, EOMI, Eyes are 4 bilaterally. conjunctiva normal, no discharge. [] Neck: Normal range of motion, no tenderness, supple, no stridor. [] Cardiovascular:Heart rate regular rhythm, no murmur [] Lungs & Thorax: Bilateral breath sounds clear to auscultation [] Abdomen: Bowel sounds normal, soft, no tenderness, no masses, no pulsatile masses. [] Skin: Warm, dry, no erythema, no rash. [] Back: Has tenderness, no CVA tenderness. [] Extremities: No tenderness, no cyanosis, no clubbing, ROM intact, no edema. [] Neurologic: Alert and oriented X 3, normal motor function, normal sensory function, no focal deficits noted. [] Psychologic: Affect anxious, judgement normal, mood normal. [] Current Patient Data Vital Signs Vital Signs Date Time Temp Pulse Resp B/P (MAP) Pulse Ox O2 Delivery O2 Flow Rate FiO2 08/15/18 14:52 98.3 94 16 113/80 (91) 99 Room Air 98.3 Lab Values Laboratory Tests Test 08/15/18 15:38 Urine Collection Type Unknown Urine Color Yellow Urine Clarity Cloudy Urine pH 6.0 Urine Specific [place] 1.010 Urine Protein Negative mg/dL (NEG-TRACE) Urine Glucose (UA) Negative mg/dL (NEG) Urine Ketones (Stick) Negative mg/dL (NEG) Urine Blood Negative (NEG) Urine Nitrite Negative (NEG) Urine Bilirubin Negative (NEG) Urine Urobilinogen Dipstick 0.2 mg/dL (0.2 mg/dL) Urine Leukocyte Esterase Negative (NEG) Urine RBC 0 /HPF (0-2) Urine WBC 0 /HPF (0-4) Urine Bacteria 0 /HPF (0-FEW) EKG EKG [] Radiology/Procedures Radiology/Procedures [] Course & Med Decision Making Course & Med Decision Making Pertinent Labs and Imaging studies reviewed. (See chart for details) Discussed signs and symptoms with the patient. Will evaluate dysuria for a UTI. I made it very clear that based on her KTRACS I will not be prescribing her narcotics and that she needs to follow up with pain management and her PCP. Will discharge home pending urine. Urine is negative. Will have patient follow up with primary care doctor on dysuria and chronic back pain. The patient is agreeable to this. She has been educated on signs and symptoms to return. Dragon Disclaimer Dragon Disclaimer This electronic medical record was generated, in whole or in part, using a voice recognition dictation system. Departure Departure Impression: Primary Impression: Chronic back pain Disposition: HOME, SELF-CARE Condition: STABLE Referrals: LISSETTE COLVIN MD (PCP) Patient Instructions: Chronic Back Pain Additional Instructions: Please follow up with your pain management doctor and your primary care Dr. Colvin. If new symptoms start or you feel that you are having an emergency please come back to the ER. Problem Qualifiers Primary Impression: Chronic back pain Back pain location: low back pain Back pain laterality: unspecified Sciatica presence: with sciatica Sciatica laterality: sciatica laterality unspecified Qualified Codes: M54.40 - Lumbago with sciatica, unspecified side; G89.29 - Other chronic pain KELLY ORTIZ APRN August 15, 2018 15:35
[2018-08-15 15:43] LABS: BILIRUBIN,URINE NEGATIVE (NEG); CLARITY,URINE CLOUDY; COLOR,URINE YELLOW; NITRITE,URINE NEGATIVE (NEG); PROTEIN,URINE NEGATIVE (NEG-TRACE); UROBILINOGEN,URINE 0.2 mg/dL (0.2 mg/dL)
[2018-08-15 15:50] LABS: BACTERIA,URINE 0 /HPF (0-FEW); RBC,URINE 0 /HPF (0-2); WBC,URINE 0 /HPF (0-4)
== END 2018-08-15 16:15 | disposition home or self-care (01) ==
LOC: ER 14:19
DX: M54.40 Lumbago with sciatica, unspecified side (principal); R30.0 Dysuria; R35.0 Frequency of micturition; R35.8 Other polyuria; I10 Essential (primary) hypertension; E03.9 Hypothyroidism, unspecified; Z90.49 Acquired absence of other specified parts of digestive tract; G89.29 Other chronic pain; Z98.51 Tubal ligation status; E66.9 Obesity, unspecified; Z68.36 Body mass index [BMI] 36.0-36.9, adult; Z87.442 Personal history of urinary calculi; Z88.1 Allergy status to other antibiotic agents; Z88.6 Allergy status to analgesic agent; Z88.8 Allergy status to other drugs, medicaments and biological substances
CPT/HCPCS: 81001; 96372; 99283; J1885

== ENCOUNTER 2019-02-06 04:28 | Emergency (ER) | payer OTHER ==
[~2019-02-06] VITALS: Ht 160 cm; Wt 86.2 kg
[~2019-02-06 04:28] MED LIST changes: +CLON-77 PO; -CLON0.5T11 PO
[2019-02-06] MEDS ORDERED: IV NORMAL SALINE 1000ML BAG 1,000 ML IV ONE (05:00)
[2019-02-06] MEDS ORDERED: ONDA4TAB12 PO (05:02)
--- NOTE | 2019-02-06 05:02 | PHYS DOC ---
Past Medical History Past Medical History: Anxiety, Hypertension, Hypothyroid, Kidney Stone, Other Additional Past Medical Histor: obesity, chronic back pain, dental pain Past Surgical History: Cholecystectomy, Tubal ligation, Other Additional Past Surgical Histo: D&C Alcohol Use: Occasionally Drug Use: None Adult General Chief Complaint Chief Complaint: NAUSEA/VOMITING/DIARRHA HPI HPI 38-year-old female presents via EMS with report of 3 day history of nausea and vomiting with report of waking up at night with significant anxiety. Patient reports she recently started taking an old prescription of phentermine weight loss pills. Denies . Denies trauma. Denies drug use. Review of Systems Review of Systems Constitutional: Denies fever or chills Eyes: Denies redness or eye pain HENT: Denies nasal congestion or sore throat Respiratory: Denies cough or shortness of breath Cardiovascular: Denies chest pain or palpitations GI: Denies abdominal pain; reports nausea and vomiting : Denies dysuria or hematuria Musculoskeletal: Denies back pain or joint pain Integument: Denies rash or skin lesions Neurologic: Denies headache, focal weakness or sensory changes Psychiatric: Reports increased anxiety and life stressors Complete systems were reviewed and found to be within normal limits, except as documented in this note. Current Medications Current Medications Current Medications Medications (Trade) Dose Ordered Sig/Cl[place] Start Time Stop Time Status Last Admin Dose Admin Lorazepam (Ativan Inj) 0.5 mg 1X ONCE 02/06/19 05:00 02/06/19 05:01 DC Potassium Chloride (Klor-Con) 40 meq 1X ONCE 02/06/19 06:00 02/06/19 06:01 02/06/19 05:47 40 MEQ Sodium Chloride 1,000 ml @ 1,000 mls/hr 1X ONCE 02/06/19 05:00 02/06/19 05:59 02/06/19 05:07 1,000 MLS/HR Allergies Allergies Allergies Coded Allergies Type Severity Reaction Last Updated Verified amoxicillin trihydrate Allergy Intermediate Hives 01/09/17 Yes potassium clavulanate Allergy Intermediate Hives 01/09/17 Yes propoxyphene Allergy Intermediate Rash 01/09/17 Yes tramadol HCl Allergy Intermediate Hives 01/09/17 Yes Physical Exam Physical Exam Constitutional: Well developed, well nourished, no acute distress, non-toxic appearance, anxious HENT: Normocephalic, atraumatic, oropharynx moist Eyes: PERRL, EOMI, conjunctiva normal, no discharge, no horizontal nystagmus noted Neck: Normal range of motion, no tenderness, supple Cardiovascular: Heart rate normal, regular rhythm Lungs & Thorax: Bilateral breath sounds clear to auscultation, no wheezing Abdomen: Soft, no tenderness, no guarding/rebound tenderness/distention Skin: Warm, dry, no erythema, no rash Extremities: No tenderness, ROM intact, no edema Neurologic: Alert and oriented X 3, normal motor function, normal sensory function, no focal deficits noted Psychologic: Affect anxious, judgement normal Current Patient Data Vital Signs Vital Signs Date Time Temp Pulse Resp B/P (MAP) Pulse Ox O2 Delivery O2 Flow Rate FiO2 02/06/19 04:30 98.3 66 16 123/65 (84) 100 Room Air 98.3 Lab Values Laboratory Tests Test 02/06/19 05:04 White Blood Count 8.7 x10^3/uL (4.0-11.0) Red Blood Count 3.87 x10^6/uL (3.50-5.40) Hemoglobin 11.0 g/dL (12.0-15.5) L Hematocrit 33.3 % (36.0-47.0) L Mean Corpuscular Volume 86 fL (79-100) Mean Corpuscular Hemoglobin 28 pg (25-35) Mean Corpuscular Hemoglobin Concent 33 g/dL (31-37) Red Cell Distribution Width 14.2 % (11.5-14.5) Platelet Count 371 x10^3/uL (140-400) Neutrophils (%) (Auto) 45 % (31-73) Lymphocytes (%) (Auto) 39 % (24-48) Monocytes (%) (Auto) 13 % (0-9) H Eosinophils (%) (Auto) 1 % (0-3) Basophils (%) (Auto) 1 % (0-3) Neutrophils # (Auto) 3.9 x10^3/uL (1.8-7.7) Lymphocytes # (Auto) 3.4 x10^3/uL (1.0-4.8) Monocytes # (Auto) 1.1 x10^3/uL (0.0-1.1) Eosinophils # (Auto) 0.1 x10^3/uL (0.0-0.7) Basophils # (Auto) 0.1 x10^3/uL (0.0-0.2) Sodium Level 140 mmol/L (136-145) Potassium Level 2.8 mmol/L (3.5-5.1) *L Chloride Level 103 mmol/L (98-107) Carbon Dioxide Level 28 mmol/L (21-32) Anion Gap 9 (6-14) Blood Urea Nitrogen 14 mg/dL (7-20) Creatinine 0.9 mg/dL (0.6-1.0) Estimated GFR (Cockcroft-Gault) 70.1 BUN/Creatinine Ratio 16 (6-20) Glucose Level 107 mg/dL (70-99) H Calcium Level 8.6 mg/dL (8.5-10.1) Magnesium Level 1.7 mg/dL (1.8-2.4) L Total Bilirubin 0.3 mg/dL (0.2-1.0) Aspartate Amino Transferase (AST) 33 U/L (15-37) Alanine Aminotransferase (ALT) 15 U/L (14-59) Alkaline Phosphatase 66 U/L (46-116) Total Protein 6.4 g/dL (6.4-8.2) Albumin 3.2 g/dL (3.4-5.0) L Albumin/Globulin Ratio 1.0 (1.0-1.7) Laboratory Tests 02/06/19 05:04 Laboratory Tests 02/06/19 05:04 EKG EKG @ 0456 Sinus bradycardia at 57bpm, NO ST elevation, QRS 88ms, QT/QTc 458/449ms, nonspecific t wave inversion V1-V2 Radiology/Procedures Radiology/Procedures CXR 2 view (preliminary interpretation by ED physician): No acute process noted Course & Med Decision Making Course & Med Decision Making Pertinent Lab studies reviewed. (See chart for details) Patient presents via EMS with history of present illness and physical exam concerning for anxiety possibly secondary to phentermine use. EKG stable. Labs obtained and posted to chart. Hypokalemia and hypomagnesemia addressed. Anxiety addressed. IV fluid hydration provided. Patient with interval improvement of symptoms. Patient stable for discharge with outpatient follow-up with PCP. Discussed findings and plan with patient, who acknowledges understanding and agreement. Dragon Disclaimer Dragon Disclaimer This electronic medical record was generated, in whole or in part, using a voice recognition dictation system. Departure Departure Impression: Primary Impression: Anxiety Additional Impressions: Nausea & vomiting Hypokalemia Hypomagnesemia Disposition: 01 HOME, SELF-CARE Condition: STABLE Referrals: LISSETTE COLVIN MD (PCP) Patient Instructions: Anxiety and Panic Attacks, [id number], Hypokalemia, Hypomagnesemia, Nausea and Vomiting, [id number], Potassium Content of Foods Additional Instructions: Discontinue your phentermine. Scripts Ondansetron (ONDANSETRON ODT) 4 Mg Tab.rapdis 1 TAB PO PRN Q6-8HRS PRN for NAUSEA, #16 TAB Prov: KELLY NEGRETE DO 02/06/19 Problem Qualifiers Additional Impressions: Nausea & vomiting Vomiting type: unspecified Vomiting Intractability: non-intractable Qualified Codes: R11.2 - Nausea with vomiting, unspecified KELLY NEGRETE DO Feb 06, 2019 05:02
[2019-02-06 05:22] LABS: BASO # 0.1 x10^3/uL (0.0-0.2); BASO % 1 % (0-3); EOS # 0.1 x10^3/uL (0.0-0.7); EOS % 1 % (0-3); HEMATOCRIT 33.3 % (36.0-47.0); LYMPH # 3.4 x10^3/uL (1.0-4.8); LYMPH % 39 % (24-48); MEAN CORPUSCULAR HEMOGLOBIN 28 pg (25-35); MEAN CORPUSCULAR HGB CONC 33 g/dL (31-37); MEAN CORPUSCULAR VOLUME 86 fL (79-100); MONO # 1.1 x10^3/uL (0.0-1.1); MONO % 13 % (0-9); NEUT # 3.9 x10^3/uL (1.8-7.7); NEUT % 45 % (31-73); PLATELET COUNT 371 x10^3/uL (140-400); RED BLOOD COUNT 3.87 x10^6/uL (3.50-5.40); RED CELL DISTRIBUTION WIDTH 14.2 % (11.5-14.5); WHITE BLOOD COUNT 8.7 x10^3/uL (4.0-11.0)
[2019-02-06 05:40] LABS: ALBUMIN 3.2 g/dL (3.4-5.0); CALCIUM 8.6 mg/dL (8.5-10.1); CREATININE 0.9 mg/dL (0.6-1.0); GFR 70.1; MAGNESIUM 1.7 mg/dL (1.8-2.4); TOTAL BILIRUBIN 0.3 mg/dL (0.2-1.0); TOTAL PROTEIN 6.4 g/dL (6.4-8.2)
[2019-02-06 05:42] LABS: POTASSIUM 2.8 mmol/L (3.5-5.1)
--- NOTE | 2019-02-06 05:57 | RAD ---
CHEST PA LATERAL CLINICAL INDICATION: Cough. COMPARISON: None FINDINGS: Heart is normal in size. Mild interstitial opacities bilaterally without focal consolidation. No pneumothorax or pleural effusion. Visualized bony thorax within normal limits. IMPRESSION: Mild atypical/viral infection. Electronically signed by: Elver Garrido DO (02/06/2019 5:54 AM) [facility]
[2019-02-06] MEDS ORDERED: POTASSIUM CHLORIDE 20 MEQ TABLET.ER. PO ONE (06:00)
[2019-02-06 06:03] VITALS: BP 130/86
[2019-02-06] MEDS ORDERED: MAGNESIUM CHLORIDE ER 64 MG TABLET.ER PO ONE (06:15)
--- NOTE | 2019-02-07 13:35 | EKG ---
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
== END 2019-02-06 06:04 | disposition home or self-care (01) ==
LOC: ER 04:28 → EEVIPCON 04:28 → ER 06:04
DX: F41.9 Anxiety disorder, unspecified (principal); R11.2 Nausea with vomiting, unspecified; E87.6 Hypokalemia; E83.42 Hypomagnesemia; I10 Essential (primary) hypertension; E03.9 Hypothyroidism, unspecified; G89.29 Other chronic pain; Z87.442 Personal history of urinary calculi; Z90.49 Acquired absence of other specified parts of digestive tract; Z98.51 Tubal ligation status
CPT/HCPCS: 36415; 71046; 80053; 83735; 85025; 93005; 96360; 99285; J7030

== ENCOUNTER 2020-01-23 17:18 | Emergency (ER) | payer SELFPAY ==
[~2020-01-23] VITALS: Ht 157.5 cm; Wt 88.8 kg
[~2020-01-23 17:18] MED LIST changes: +ONDA4TAB12 PO; +POTA20TA4 PO; -POTA20TA82 PO
[2020-01-23 18:30] VITALS: BP 164/106
[2020-01-23] MEDS ORDERED: HYDR-3164 PO (19:55)
[2020-01-23] MEDS ORDERED: CLIN300C8 PO (19:55)
--- NOTE | 2020-01-23 19:56 | PHYS DOC ---
Past Medical History Past Medical History: Anxiety, Hypertension, Hypothyroid, Kidney Stone, Other Additional Past Medical Histor: obesity, chronic back pain, dental pain Past Surgical History: Cholecystectomy, Tubal ligation, Other Additional Past Surgical Histo: D&C Smoking Status: Never Smoker Alcohol Use: Occasionally Drug Use: None General Adult EDM: Chief Complaint: DENTAL PROBLEM HPI: HPI: Patient is a 39 year old female who presents with many dental caries. She states over the last 2 days she has had increasing pain with left-sided facial swelling. She states she is had some body aches. Patient has tenderness to the anterior left lower gumline. Patient rates her aching pain at a 10 out of 10. She states she been taking Tylenol and ibuprofen but is not helping. Patient has a history of dental pain, hypertension, hypothyroidism, anxiety, kidney stone, cholecystectomy, D&C. Review of Systems: Review of Systems: Constitutional: Denies fever or chills. [] Eyes: Denies change in visual acuity. [] HENT: Denies nasal congestion or sore throat. +Dental pain and dental caries. [] Respiratory: Denies cough or shortness of breath. [] Cardiovascular: Denies chest pain. +Left-sided facial welling. [] GI: Denies abdominal pain, nausea, vomiting, bloody stools or diarrhea. [] : Denies dysuria. [] Musculoskeletal: Denies back pain or joint pain. [] Integument: Denies rash. [] Neurologic: Denies headache, focal weakness or sensory changes. [] Endocrine: Denies polyuria or polydipsia. [] Lymphatic: Denies swollen glands. [] Psychiatric: Denies depression or anxiety. [] Heart Score: Risk Factors: Risk Factors: DM, Current or recent (<one month) smoker, HTN, HLP, family history of CAD, obesity. Risk Scores: Score 0 - 3: 2.5% MACE over next 6 weeks - Discharge Home Score 4 - 6: 20.3% MACE over next 6 weeks - Admit for Clinical Observation Score 7 - 10: 72.7% MACE over next 6 weeks - Early Invasive Strategies Allergies: Allergies: Allergies Coded Allergies Type Severity Reaction Last Updated Verified amoxicillin trihydrate Allergy Intermediate Hives 01/09/17 Yes potassium clavulanate Allergy Intermediate Hives 01/09/17 Yes propoxyphene Allergy Intermediate Rash 01/09/17 Yes tramadol HCl Allergy Intermediate Hives 01/09/17 Yes Physical Exam: PE: Constitutional: Well developed, well nourished, no acute distress, non-toxic appearance. [] HENT: Normocephalic, atraumatic, bilateral external ears normal, oropharynx moist, no oral exudates, nose normal. Left lower inner cheek tenderness and gumline. No drainage. [] Eyes: PERRLA, EOMI, conjunctiva normal, no discharge. [] Neck: Normal range of motion, no tenderness, supple, no stridor. [] Cardiovascular:Heart rate regular rhythm, no murmur [] Lungs & Thorax: Bilateral breath sounds clear to auscultation [] Abdomen: Bowel sounds normal, soft, no tenderness, no masses, no pulsatile masses. [] Skin: Warm, dry, no erythema, no rash. [] Back: No tenderness, no CVA tenderness. [] Extremities: No tenderness, no cyanosis, no clubbing, ROM intact, no edema. [] Neurologic: Alert and oriented X 3, normal motor function, normal sensory function, no focal deficits noted. [] Psychologic: Affect normal, judgement normal, mood normal. [] Current Patient Data: Vital Signs: Vital Signs Date Time Temp Pulse Resp B/P (MAP) Pulse Ox O2 Delivery O2 Flow Rate FiO2 01/23/20 18:30 98.8 100 18 164/106 (125) 100 Room Air 98.8 EKG: EKG: [] Radiology/Procedures: Radiology/Procedures: [] Course & Med Decision Making: Course & Med Decision Making Pertinent Labs and Imaging studies reviewed. (See chart for details) Patient denies fever, nausea, vomiting, diarrhea, dizziness, headache, abdominal pain, ear pain. Afebrile. There is no cellulitis to the outside of face. Patient has many missing teeth and dental caries. Patient states that she currently does not have dentures but her is adding her back on. Patient is given dental resources. Patient is stable and discharged home. [] Dragon Disclaimer: Dragon Disclaimer: This electronic medical record was generated, in whole or in part, using a voice recognition dictation system. Departure Departure Impression: Primary Impression: Dental abscess Disposition: 01 DC HOME SELF CARE/HOMELESS Condition: STABLE Referrals: LISSETTE COLVIN MD (PCP) Patient Instructions: Dental Abscess, Dental Caries Additional Instructions: Follow-up with adenosine as possible. Drink plenty of fluids. Take medication as prescribed and with food. Remember this pain medication will make you sleepy so do not drive or drink alcohol or work on this medication. Scripts Hydrocodone/Apap 5-325 (NORCO 5-325 TABLET) 1 Each Tablet 1 TAB PO PRN Q6HRS PRN for PAIN, #10 TAB 0 Refills Prov: CHRISTY BLACK APRN 01/23/20 Clindamycin Hcl (CLINDAMYCIN HCL) 300 Mg Capsule 300 MG PO QID for 10 Days, #40 CAP Prov: CHRISTY BLACK APRN 01/23/20 CHRISTY BLACK APRN Jan 23, 2020 19:56
[2020-01-23] MEDS ORDERED: HYDROcodone/APAP 5/325MG 1 TAB TABLET PO ONE (20:00)
== END 2020-01-23 20:08 | disposition home or self-care (01) ==
LOC: ER 17:18
DX: K04.7 Periapical abscess without sinus (principal); K08.89 Other specified disorders of teeth and supporting structures; R60.0 Localized edema; F41.9 Anxiety disorder, unspecified; I10 Essential (primary) hypertension; E03.9 Hypothyroidism, unspecified; G89.29 Other chronic pain; Z90.49 Acquired absence of other specified parts of digestive tract; Z87.442 Personal history of urinary calculi; Z98.51 Tubal ligation status; Z98.890 Other specified postprocedural states
CPT/HCPCS: 99283

== ENCOUNTER 2020-02-08 13:47 | Emergency (ER) | payer SELFPAY ==
[~2020-02-08] VITALS: Ht 157.5 cm; Wt 81.8 kg
[~2020-02-08 13:47] MED LIST changes: +CLIN300C8 PO; +HYDR-3164 PO
[2020-02-08 14:48] VITALS: BP 128/88
[2020-02-08 15:39] LABS: BILIRUBIN,URINE SMALL (NEG); CLARITY,URINE CLEAR; COLOR,URINE AMBER; NITRITE,URINE NEGATIVE (NEG); PROTEIN,URINE 30 mg/dL (NEG-TRACE); UROBILINOGEN,URINE 0.2 mg/dL (0.2 mg/dL)
[2020-02-08 15:45] LABS: BASO # 0.1 x10^3/uL (0.0-0.2); BASO % 1 % (0-3); EOS # 0.3 x10^3/uL (0.0-0.7); EOS % 2 % (0-3); HEMATOCRIT 35.4 % (36.0-47.0); HEMOGLOBIN 11.6 g/dL (12.0-15.5); LYMPH # 3.9 x10^3/uL (1.0-4.8); LYMPH % 25 % (24-48); MEAN CORPUSCULAR HEMOGLOBIN 27 pg (25-35); MEAN CORPUSCULAR HGB CONC 33 g/dL (31-37); MEAN CORPUSCULAR VOLUME 83 fL (79-100); MONO # 1.6 x10^3/uL (0.0-1.1); MONO % 10 % (0-9); NEUT % 63 % (31-73); PLATELET COUNT 469 x10^3/uL (140-400); RED BLOOD COUNT 4.26 x10^6/uL (3.50-5.40); RED CELL DISTRIBUTION WIDTH 15.1 % (11.5-14.5); WHITE BLOOD COUNT 15.9 x10^3/uL (4.0-11.0)
[2020-02-08 15:50] LABS: BACTERIA,URINE FEW /HPF (0-FEW); RBC,URINE 0 /HPF (0-2)
[2020-02-08 15:55] LABS: CALCIUM 8.8 mg/dL (8.5-10.1); CREATININE 0.8 mg/dL (0.6-1.0); GFR 79.9; POTASSIUM 3.2 mmol/L (3.5-5.1)
[2020-02-08 16:02] LABS: ALBUMIN 3.9 g/dL (3.4-5.0); ALBUMIN/GLOBULIN RATIO 1.3 (1.0-1.7); MAGNESIUM 1.8 mg/dL (1.8-2.4); TOTAL BILIRUBIN 0.3 mg/dL (0.2-1.0); TOTAL PROTEIN 6.8 g/dL (6.4-8.2)
--- NOTE | 2020-02-08 16:03 | PHYS DOC ---
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 She states she does have chronic degenerative disc disease, scoliosis and bulging disc in her back. She states that we will get a chest x-ray she is used to charley horses behind her knees but she feels like she has "post charley horse generalized body pains". She rates her overall pain an 8 out of 10. She denies chest pain, shortness of b reath, fever, dysuria symptoms, cough, injury, fall, dizziness, headache, vision changes, abdominal pain, nausea, vomiting, diarrhea, focal weakness, numbness or tingling. Patient is currently on a antibiotic for a dental abscess. She is taking clindamycin. (CHRISTY BLACK MECHANICAL INTEGRITY ENGINEER) Review of Systems: Review of Systems: Constitutional: Denies fever or chills. [] Eyes: Denies change in visual acuity. [] HENT: Denies nasal congestion or sore throat. [] Respiratory: Denies cough or shortness of breath. [] Cardiovascular: Denies chest pain or edema. [] GI: Denies abdominal pain, nausea, vomiting, bloody stools or diarrhea. [] : Denies dysuria. [] Musculoskeletal: Denies back pain or joint pain. +Left upper leg sharp shooting pain down to the left knee. + Generalized body pain mostly in the mornings. [] Integument: Denies rash. [] Neurologic: Denies headache, focal weakness or sensory changes. [] Endocrine: Denies polyuria or polydipsia. [] Lymphatic: Denies swollen glands. [] Psychiatric: Denies depression or anxiety. [] (CHRISTY BLACK APRN) Heart Score: Risk Factors: Risk Factors: DM, Current or recent (<one month) smoker, HTN, HLP, family history of CAD, obesity. Risk Scores: Score 0 - 3: 2.5% MACE over next 6 weeks - Discharge Home Score 4 - 6: 20.3% MACE over next 6 weeks - Admit for Clinical Observation Score 7 - 10: 72.7% MACE over next 6 weeks - Early Invasive Strategies (CHRISTY BLACK APRN) Allergies: Allergies: Allergies Coded Allergies Type Severity Reaction Last Updated Verified amoxicillin trihydrate Allergy Intermediate Hives 01/09/17 Yes potassium clavulanate Allergy Intermediate Hives 01/09/17 Yes propoxyphene Allergy Intermediate Rash 01/09/17 Yes tramadol HCl Allergy Intermediate Hives 01/09/17 Yes (CHRISTY BLACK APRN) Physical Exam: PE: Constitutional: Well developed, well nourished, no acute distress, non-toxic appearance. [] HENT: Normocephalic, atraumatic, bilateral external ears normal, oropharynx moist, no oral exudates, nose normal. [] Eyes: PERRLA, EOMI, conjunctiva normal, no discharge. [] Neck: Normal range of motion, no tenderness, supple, no stridor. [] Cardiovascular:Heart rate regular rhythm, no murmur [] Lungs & Thorax: Bilateral breath sounds clear to auscultation [] Abdomen: Bowel sounds normal, soft, no tenderness, no masses, no pulsatile masses. [] Skin: Warm, dry, no erythema, no rash. [] Back: No tenderness, no CVA tenderness. [] Extremities: No tenderness, no cyanosis, no clubbing, ROM intact, no edema. [] Neurologic: Alert and oriented X 3, normal motor function, normal sensory function, no focal deficits noted. [] Psychologic: Affect normal, judgement normal, mood normal. Normal physical exam [] (CHRISTY BLACK APRN) Current Patient Data: Labs: Laboratory Tests Test 02/08/20 15:05 02/08/20 15:30 02/08/20 15:42 Urine Collection Type Unknown Urine Color [place] Urine Clarity Clear Urine pH 6.0 (<5.0-8.0) Urine Specific [place] >=1.030 (1.000-1.030) Urine Protein 30 mg/dL (NEG-TRACE) Urine Glucose (UA) Negative mg/dL (NEG) Urine Ketones (Stick) Negative mg/dL (NEG) Urine Blood Negative (NEG) Urine Nitrite Negative (NEG) Urine Bilirubin Small (NEG) Urine Urobilinogen Dipstick 0.2 mg/dL (0.2 mg/dL) Urine Leukocyte Esterase Negative (NEG) Urine RBC 0 /HPF (0-2) Urine WBC 1-4 /HPF (0-4) Urine Squamous Epithelial Cells None /LPF Urine Bacteria Few /HPF (0-FEW) Urine Mucus Marked /LPF White Blood Count 15.9 x10^3/uL (4.0-11.0) H Red Blood Count 4.26 x10^6/uL (3.50-5.40) Hemoglobin 11.6 g/dL (12.0-15.5) L Hematocrit 35.4 % (36.0-47.0) L Mean Corpuscular Volume 83 fL (79-100) Mean Corpuscular Hemoglobin 27 pg (25-35) Mean Corpuscular Hemoglobin Concent 33 g/dL (31-37) Red Cell Distribution Width 15.1 % (11.5-14.5) H Platelet Count 469 x10^3/uL (140-400) H Neutrophils (%) (Auto) 63 % (31-73) Lymphocytes (%) (Auto) 25 % (24-48) Monocytes (%) (Auto) 10 % (0-9) H Eosinophils (%) (Auto) 2 % (0-3) Basophils (%) (Auto) 1 % (0-3) Neutrophils # (Auto) 10.0 x10^3/uL (1.8-7.7) H Lymphocytes # (Auto) 3.9 x10^3/uL (1.0-4.8) Monocytes # (Auto) 1.6 x10^3/uL (0.0-1.1) H Eosinophils # (Auto) 0.3 x10^3/uL (0.0-0.7) Basophils # (Auto) 0.1 x10^3/uL (0.0-0.2) POC Urine HCG, Qualitative Hcg negative (Negative) Laboratory Tests 02/08/20 15:30 Vital Signs: Vital Signs Date Time Temp Pulse Resp B/P (MAP) Pulse Ox O2 Delivery O2 Flow Rate FiO2 02/08/20 14:48 98.4 83 20 128/88 (101) 99 Room Air 98.4 (CHRISTY BLACK APRN) EKG: EKG: [] (CHRISTY BLACK APRN) Radiology/Procedures: Radiology/Procedures: [] (CHRISTY BLACK APRN) Course & Med Decision Making: Course & Med Decision Making Pertinent Labs and Imaging studies reviewed. (See chart for details) See HPI. Alert and oriented x4. Speaks in full clear sentences. Ambulatory with a steady gait. No unilateral extremity swelling. No tenderness to her flanks. No focal bony spinal tenderness. 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 Abdomen soft and nontender. Lungs are clear all station all lobes. Vital signs within normal limits. Patient denies fevers and she has no fever. Urinalysis shows no infection. Patient is currently on clindamycin for her dental abscess. Her white count is 15.6. She does not meet SIRS criteria. She is afebrile. Patient will get orphenadrine prescription. Patient to follow-up with her primary care physician and a dentist as soon as possible. Patient will be given potassium chloride in the ED. [] (CHRISTY BLACK APRN) Dragon Disclaimer: Dragon Disclaimer: This electronic medical record was generated, in whole or in part, using a voice recognition dictation system. (CHRISTY BLACK APRN) Departure Departure Impression: Primary Impression: Hypokalemia Additional Impression: Sciatica of left side Disposition: 01 DC HOME SELF CARE/HOMELESS Condition: STABLE Referrals: NO PCP (PCP) Patient Instructions: Hypokalemia-Brief, Sciatica with Rehab-[facility] Additional Instructions: Continue taking clindamycin as prescribed. Follow-up with a dentist. Follow-up with your primary care provider as soon as possible. Drink plenty of fluids. Take medications with food. Scripts Orphenadrine Citrate (ORPHENADRINE CITRATE) 100 Mg Tablet.er 1 TAB PO BID, #14 TAB Prov: CHRISTY BLACK APRN 02/08/20 Attending Signature Attending Signature I have reviewed the PA/DIPPER MACHINE OPERATOR's note and plan of care. I was available for consultation as needed during the patient's visit in the emergency department. I agree with the clinical impression, plan, and disposition. (KELLY NEGRETE DO) CHRISTY BLACK APRN Feb 08, 2020 16:03 KELLY NEGRETE DO Feb 08, 2020 18:45
[2020-02-08] MEDS ORDERED: ORPH100T PO (16:26)
[2020-02-08] MEDS ORDERED: POTASSIUM CHLORIDE 20 MEQ TABLET.ER. PO ONE (16:45)
[2020-02-08] MEDS ORDERED: ONDANSETRON ODT 4 MG TAB.RAPDIS. PO ONE (16:45)
[2020-02-08 16:51] LABS: BARBITURATES NEG (NEG); BENZODIAZEPINES POS (NEG); CANNABINOIDS POS (NEG); COCAINE NEG (NEG); METHADONE NEG (NEG); OPIATES POS (NEG); PHENCYCLIDINE NEG (NEG)
[2020-02-08 16:53] LABS: AMPHETAMINE/METHAMPHETAMINE POS (NEG)
== END 2020-02-08 16:53 | disposition home or self-care (01) ==
LOC: ER 13:47
DX: M54.32 Sciatica, left side (principal); E87.6 Hypokalemia; I10 Essential (primary) hypertension; E03.9 Hypothyroidism, unspecified; G89.29 Other chronic pain; Z90.49 Acquired absence of other specified parts of digestive tract; Z98.51 Tubal ligation status; Z88.1 Allergy status to other antibiotic agents; Z88.6 Allergy status to analgesic agent; Z88.8 Allergy status to other drugs, medicaments and biological substances
CPT/HCPCS: 36415; 80053; 80307; 81001; 81025; 83735; 85025; 99283

== ENCOUNTER 2021-02-13 17:44 | Emergency (ER) | payer SELFPAY ==
[~2021-02-13] VITALS: Ht 157.5 cm; Wt 90.0 kg
[~2021-02-13 17:44] MED LIST changes: +CLIN-94 PO; -CLIN150C14 PO; +CLIN150C16 PO; -CLIN300C8 PO; +CYCL10TA19 PO; -CYCL10TA2 PO; +ORPH100T PO
[2021-02-13] MEDS ORDERED: levETIRAcetam 1,000 MG in IV DEXTROSE 5% 100ML 100 ML IV ONE (18:15)
[2021-02-13 18:19] LABS: BASO # 0.1 x10^3/uL (0.0-0.2); BASO % 1 % (0-3); EOS # 0.3 x10^3/uL (0.0-0.7); EOS % 3 % (0-3); HEMATOCRIT 36.4 % (36.0-47.0); HEMOGLOBIN 11.4 g/dL (12.0-15.5); LYMPH # 4.2 x10^3/uL (1.0-4.8); LYMPH % 42 % (24-48); MEAN CORPUSCULAR HEMOGLOBIN 23 pg (25-35); MEAN CORPUSCULAR HGB CONC 31 g/dL (31-37); MEAN CORPUSCULAR VOLUME 74 fL (79-100); MONO # 0.8 x10^3/uL (0.0-1.1); MONO % 8 % (0-9); NEUT # 4.5 x10^3/uL (1.8-7.7); NEUT % 46 % (31-73); PLATELET COUNT 523 x10^3/uL (140-400); RED CELL DISTRIBUTION WIDTH 17.4 % (11.5-14.5); WHITE BLOOD COUNT 9.9 x10^3/uL (4.0-11.0)
[2021-02-13 18:23] LABS: CALCIUM 7.8 mg/dL (8.5-10.1); CREATININE 0.8 mg/dL (0.6-1.0); GFR 79.4; POTASSIUM 3.4 mmol/L (3.5-5.1)
--- NOTE | 2021-02-13 18:29 | PHYS DOC ---
Past Medical History Past Medical History: Anxiety, Hypertension, Hypothyroid, Kidney Stone, Seizure, Other Additional Past Medical Histor: obesity, chronic back pain, dental pain Past Surgical History: Cholecystectomy, Tubal ligation, Other Additional Past Surgical Histo: D&C Smoking Status: Never Smoker Alcohol Use: Occasionally Drug Use: None General Adult EDM: Chief Complaint: SEIZURE HPI: HPI: Patient is a 40 year old female with history of seizures, hypertension, anxiety, hypothyroidism, who presents the ED today to be evaluated after having a seizure. Patient states she was at the Parking lot of a voting station, she had finished voiding, and had a seizure. This was unwitnessed though it is unknown how long it lasted, she is up, is unknown how long it lasted but a bystander was able to call EMS. Patient arrives in the ED alert oriented x4 and answering all questions appropriately. She states she is supposed to be on clonazepam for seizures but does not take it because she cannot afford it. Patient reports right forehead pain, left shoulder pain, mid and low back pain. Rates the pain as mild and intermittent. Denies anything specifically exacerbating or relieving the pain, describes the pain as throbbing. Review of Systems: Review of Systems: Constitutional: Denies fever or chills. [] Eyes: Denies change in visual acuity. [] HENT: Denies nasal congestion or sore throat. [] Respiratory: Denies cough or shortness of breath. [] Cardiovascular: Denies chest pain or edema. [] GI: Denies abdominal pain, nausea, vomiting, bloody stools or diarrhea. [] : Denies dysuria. [] Musculoskeletal: Reports left shoulder pain, mid and low back pain Integument: Denies rash. [] Neurologic: Reports seizure, head pain Psychiatric: Denies depression or anxiety. [] Heart Score: C/O Chest Pain: N/A Risk Factors: Risk Factors: DM, Current or recent (<one month) smoker, HTN, HLP, family history of CAD, obesity. Risk Scores: Score 0 - 3: 2.5% MACE over next 6 weeks - Discharge Home Score 4 - 6: 20.3% MACE over next 6 weeks - Admit for Clinical Observation Score 7 - 10: 72.7% MACE over next 6 weeks - Early Invasive Strategies Current Medications: Current Medications Medications (Trade) Dose Ordered Sig/Clayton Start Time Stop Time Status Last Admin Dose Admin Levetiracetam 1000 mg/Dextrose 110 ml @ 440 mls/hr 1X ONCE 02/13/21 18:15 02/13/21 18:29 Allergies: Allergies: Allergies Coded Allergies Type Severity Reaction Last Updated Verified No Known Drug Allergies 02/08/20 No Physical Exam: PE: Constitutional: Well developed, well nourished, no acute distress, non-toxic appearance. [] HENT: Normocephalic, atraumatic, bilateral external ears normal, oropharynx moist, no oral exudates, nose normal. [] Eyes: PERRLA, EOMI, conjunctiva normal, no discharge. [] Neck: Normal range of motion, no tenderness, supple, no stridor. [] Cardiovascular:Heart rate regular rhythm, no murmur [] Lungs & Thorax: Bilateral breath sounds clear to auscultation [] Abdomen: Bowel sounds normal, soft, no tenderness, no masses, no pulsatile masses. [] Skin: Warm, dry, no erythema, no rash. [] Back: Diffuse paraspinal muscle tenderness to thoracic and lumbar spine with some midline tenderness to thoracic and lumbar spine, no CVA tenderness. [] Extremities: No tenderness, no cyanosis, no clubbing, ROM intact, no edema. [] Neurologic: Right forehead with abrasions, alert and oriented X 3, normal motor function, normal sensory function, no focal deficits noted. Cranial nerves II through XII intact Psychologic: Flat affect Current Patient Data: Labs: Laboratory Tests Test 02/13/21 18:00 White Blood Count 9.9 x10^3/uL (4.0-11.0) Red Blood Count 4.90 x10^6/uL (3.50-5.40) Hemoglobin 11.4 g/dL (12.0-15.5) L Hematocrit 36.4 % (36.0-47.0) Mean Corpuscular Volume 74 fL (79-100) L Mean Corpuscular Hemoglobin 23 pg (25-35) L Mean Corpuscular Hemoglobin Concent 31 g/dL (31-37) Red Cell Distribution Width 17.4 % (11.5-14.5) H Platelet Count 523 x10^3/uL (140-400) H Neutrophils (%) (Auto) 46 % (31-73) Lymphocytes (%) (Auto) 42 % (24-48) Monocytes (%) (Auto) 8 % (0-9) Eosinophils (%) (Auto) 3 % (0-3) Basophils (%) (Auto) 1 % (0-3) Neutrophils # (Auto) 4.5 x10^3/uL (1.8-7.7) Lymphocytes # (Auto) 4.2 x10^3/uL (1.0-4.8) Monocytes # (Auto) 0.8 x10^3/uL (0.0-1.1) Eosinophils # (Auto) 0.3 x10^3/uL (0.0-0.7) Basophils # (Auto) 0.1 x10^3/uL (0.0-0.2) Platelet Estimate Pending Sodium Level 143 mmol/L (136-145) Potassium Level 3.4 mmol/L (3.5-5.1) L Chloride Level 106 mmol/L (98-107) Carbon Dioxide Level 27 mmol/L (21-32) Anion Gap 10 (6-14) Blood Urea Nitrogen 10 mg/dL (7-20) Creatinine 0.8 mg/dL (0.6-1.0) Estimated GFR (Cockcroft-Gault) 79.4 BUN/Creatinine Ratio 13 (6-20) Glucose Level 112 mg/dL (70-99) H Calcium Level 7.8 mg/dL (8.5-10.1) L Total Bilirubin Pending Aspartate Amino Transferase (AST) Pending Alanine Aminotransferase (ALT) Pending Alkaline Phosphatase Pending Total Protein Pending Albumin Pending Albumin/Globulin Ratio Pending Laboratory Tests 02/13/21 18:00 Laboratory Tests 02/13/21 18:00 Vital Signs: Vital Signs Date Time Temp Pulse Resp B/P (MAP) Pulse Ox O2 Delivery O2 Flow Rate FiO2 02/13/21 17:46 98.7 91 20 117/62 (80) 100 Room Air 98.7 EKG: EKG: [] Radiology/Procedures: Radiology/Procedures: []PROCEDURE: SHOULDER 2+V LEFT Exam: Left shoulder 3 views INDICATION: Fall, pain, seizure TECHNIQUE: Frontal view of the left shoulder with internal and external rotation and transscapular Y views Comparisons: None FINDINGS: Bone mineralization is normal. No acute or healed fractures. Soft tissues are unremarkable. Joint spaces are well-maintained. IMPRESSION: No acute osseous abnormality Electronically signed by: Gideon Galvin MD (02/13/2021 9:15 PM) [facility] DICTATED and SIGNED BY: GIDEON GALVIN MD DATE: 02/13/[id number] 0 PROCEDURE: CT THORACIC SPINE WO CONTRAST Exam: CT the thoracic and lumbar spine without contrast INDICATION: Fall, seizure, back pain TECHNIQUE: Sequential axial images through the thoracic and lumbar spine obtained without IV contrast. Sagittal and coronal reformatted images were reconstructed from the axial data and reviewed. Exposure: One or more of the following in the visualized dose reduction techniques were utilized for this examination: 1. Automated exposure control 2. Adjustment of the MA and/or KV according to patient size 3. Use of iterative of reconstructive technique Comparisons: None FINDINGS: Thoracic spine: Vertebral body heights and alignment are well-maintained. Fracture through the thoracic spine is not identified. No significant spondylotic change in the thoracic spine. Visualized paraspinal soft tissues are unremarkable. Lumbar spine: Vertebral body heights and alignment are well-maintained. Fracture to the lumbar spine is not identified. No significant spondylotic change in the lumbar spine. Visualized paraspinal soft tissues are unremarkable. IMPRESSION: Negative CT thoracic and lumbar spine for acute traumatic injury. Electronically signed by: Gideon Galvin MD (02/13/2021 7:02 PM) [facility] DICTATED and SIGNED BY: GIDEON GALVIN MD DATE: 02/13/[id number] 0 PROCEDURE: CT MAXILLOFACIAL WO CONTRAST Exam: CT head, maxillofacial and cervical spine without contrast INDICATION: Fall, seizure TECHNIQUE: Sequential axial images through the head and face were obtained without the administration of IV contrast. Exposure: One or more of the following in the visualized dose reduction techniques were utilized for this examination: 1. Automated exposure control 2. Adjustment of the MA and/or KV according to patient size 3. Use of iterative of reconstructive technique Comparisons: None FINDINGS: Head: No focal parenchymal lesion or hemorrhage is identified. There is no midline shift or sulcal effacement. Mild patchy evidence in periventricular white matter. No acute vascular territory infarction is identified. Du-white distinction is preserved. The ventricular system is within normal limits without compression hydrocephalus. The basal cisterns are well maintained. Face: Mild extra cranial soft tissue scalp contusion overlying the right superior orbital ridge. Globes and orbital contents are normal. The visualized portions of the paranasal sinuses and mastoid air cells are well-pneumatized. No acute fractures. Cervical spine: Straightening of cervical spine which may positional. Vertebral body heights are well-maintained. Fracture to the cervical spine is not identified. No significant spondylotic change in the cervical spine. Visualized paraspinal soft tissues are unremarkable IMPRESSION: 1. Mild extra cranial soft tissue scalp contusion overlying the right superior orbital ridge without underlying osseous abnormality. 2. No acute intracranial abnormality. 3. Negative CT C-spine for acute traumatic injury. Electronically signed by: Gideon Galvin MD (02/13/2021 6:48 PM) [facility] DICTATED and SIGNED BY: GIDEON GALVIN MD DATE: 02/13/21 [id number] 0 Course & Med Decision Making: Course & Med Decision Making Pertinent Labs and Imaging studies reviewed. (See chart for details) This is a 40-year-old female patient presented to the ED today to be evaluated after having a seizure. This was a witnessed seizure, currently complaining of right forehead pain, mid and low back pain, left shoulder pain. Left shoulder x-rays interpreted by radiologist are negative for any acute findings, CT of the head was negative for any acute findings, noted for scalp contusion. CT of maxillofacial, cervical spine, thoracic and lumbar spine are negative. CBC CMP with nothing really acute. UA negative for infection. UDS positive for methamphetamine patient states she is on phentermine for weight loss also positive for alcohol, she admits to drinking Discharge to home with [facility]. Provided neurologist for follow-up Paloma Disclaimer: [place]oma Disclaimer: This electronic medical record was generated, in whole or in part, using a voice recognition dictation system. Departure Departure Impression: Primary Impression: Seizure Additional Impressions: ETOHism Head contusion Qualified Codes: S00.03XA - Contusion of scalp, initial encounter Fall Qualified Codes: W19.XXXA - Unspecified fall, initial encounter Lumbar contusion Qualified Codes: S30.0XXA - Contusion of lower back and pelvis, initial encounter Acute cervical sprain Qualified Codes: S13.9XXA - Sprain of joints and ligaments of unspecified parts of neck, initial encounter Contusion of thoracic spine Disposition: HOME / SELF CARE / HOMELESS Condition: STABLE Referrals: NO PCP (PCP) EMMANUEL MICHEL MD follow up in 1-2 weeks Patient Instructions: Alcohol Problems, Contusion, Methamphetamine Abuse, Complications, Seizure, Adult Additional Instructions: You were evaluated in the emergency room after having a seizure. Take the seizure medicine as ordered. Please follow-up with your doctor and the provided neurologist as soon as possible Scripts Levetiracetam (KEPPRA) 500 Mg Tablet 1 TAB PO BID for 30 Days, #60 TAB 0 Refills Prov: ROCCO GURROLA APRN 02/13/21 ROCCO GURROLA APRN Feb 13, 2021 18:29
[2021-02-13 18:31] LABS: ALBUMIN/GLOBULIN RATIO 0.9 (1.0-1.7); TOTAL BILIRUBIN 0.1 mg/dL (0.2-1.0); TOTAL PROTEIN 6.3 g/dL (6.4-8.2)
[2021-02-13 18:48] LABS: PLT ESTIMATE INCREASED (ADEQUATE)
[2021-02-13 18:50] LABS: ANISOCYTOSIS SLIGHT; HYPOCHROMIA SLIGHT; MICROCYTOSIS SLIGHT
[2021-02-13 18:51] LABS: OVALOCYTES OCC; POLYCHROMASIA PRESENT
--- NOTE | 2021-02-13 18:51 | RAD ---
Exam: CT head, maxillofacial and cervical spine without contrast INDICATION: Fall, seizure TECHNIQUE: Sequential axial images through the head and face were obtained without the administration of IV contrast. Exposure: One or more of the following in the visualized dose reduction techniques were utilized for this examination: 1. Automated exposure control 2. Adjustment of the MA and/or KV according to patient size 3. Use of iterative of reconstructive technique Comparisons: None FINDINGS: Head: No focal parenchymal lesion or hemorrhage is identified. There is no midline shift or sulcal effaceme nt. Mild patchy evidence in periventricular white matter. No acute vascular territory infarction is ident ified. Du-white distinction is preserved. The ventricular system is within normal limits without compression hydrocephalus. The basal cisterns are well maintained. Face: Mild extra cranial soft tissue scalp contusion overlying the right superior orbital ridge. Globes and orbital contents are normal. The visualized portions of the paranasal sinuses and mastoid air cells are well-pneumatized. No acute fractures. Cervical spine: Straightening of cervical spine which may positional. Vertebral body heights are well-maintained. Fracture to the cervical spine is not identified. No significant spondylotic change in the cervical spine. Visualized paraspinal soft tissues are unremarkable IMPRESSION: 1. Mild extra cranial soft tissue scalp contusion overlying the right superior orbital ridge without underlying osseous abnormality. 2. No acute intracranial abnormality. 3. Negative CT C-spine for acute traumatic injury. Electronically signed by: Gideon Choi MD (02/13/2021 6:48 PM) [facility]
--- NOTE | 2021-02-13 19:05 | RAD ---
Exam: CT the thoracic and lumbar spine without contrast INDICATION: Fall, seizure, back pain TECHNIQUE: Sequential axial images through the thoracic and lumbar spine obtained without IV contrast . Sagittal and coronal reformatted images were reconstructed from the axial data and reviewed. Exposure: One or more of the following in the visualized dose reduction techniques were utilized for this examination: 1. Automated exposure control 2. Adjustment of the MA and/or KV according to patient size 3. Use of iterative of reconstructive technique Comparisons: None FINDINGS: Thoracic spine: Vertebral body heights and alignment are well-maintained. Fracture through the thoracic spine is not identified. No significant spondylotic change in the thoracic spine. Visualized paraspinal soft tissues are unremarkable. Lumbar spine: Vertebral body heights and alignment are well-maintained. Fracture to the lumbar spine is not identified. No significant spondylotic change in the lumbar spine. Visualized paraspinal soft tissues are unremarkable. IMPRESSION: Negative CT thoracic and lumbar spine for acute traumatic injury. Electronically signed by: Gideon Choi MD (02/13/2021 7:02 PM) [facility]
[2021-02-13 19:26] LABS: BILIRUBIN,URINE NEGATIVE (NEG); CLARITY,URINE CLEAR; COLOR,URINE YELLOW; NITRITE,URINE NEGATIVE (NEG); PH,URINE 7.5 (<5.0-8.0); PROTEIN,URINE NEGATIVE (NEG-TRACE); UROBILINOGEN,URINE 0.2 mg/dL (0.2 mg/dL)
[2021-02-13 19:32] LABS: BARBITURATES NEG (NEG); BENZODIAZEPINES NEG (NEG); CANNABINOIDS NEG (NEG); COCAINE NEG (NEG); METHADONE NEG (NEG); OPIATES NEG (NEG); PHENCYCLIDINE NEG (NEG)
[2021-02-13 19:37] LABS: AMORPHOUS SEDIMENT,UR PRESENT /HPF; AMPHETAMINE/METHAMPHETAMINE POS (NEG); BACTERIA,URINE MOD /HPF (0-FEW); RBC,URINE 0 /HPF (0-2)
[2021-02-13] MEDS ORDERED: HYDROcodone/APAP 5/325MG 1 TAB TABLET PO ONE (20:45)
[2021-02-13 21:08] VITALS: BP 138/77
--- NOTE | 2021-02-13 21:17 | RAD ---
Exam: Left shoulder 3 views INDICATION: Fall, pain, seizure TECHNIQUE: Frontal view of the left shoulder with internal and external rotation and transscapular Y views Comparisons: None FINDINGS: Bone mineralization is normal. No acute or healed fractures. Soft tissues are unremarkable. Joint spa alexandro are well-maintained. IMPRESSION: No acute osseous abnormality Electronically signed by: Gideon Choi MD (02/13/2021 9:15 PM) [facility]
[2021-02-13] MEDS ORDERED: LEVE500T56 PO (21:39)
== END 2021-02-13 21:50 | disposition home or self-care (01) ==
LOC: ER 17:44
DX: S13.9XXA Sprain of joints and ligaments of unspecified parts of neck, initial encounter (principal); S30.0XXA Contusion of lower back and pelvis, initial encounter; S20.229A Contusion of unspecified back wall of thorax, initial encounter; S00.03XA Contusion of scalp, initial encounter; F10.20 Alcohol dependence, uncomplicated; Y90.9 Presence of alcohol in blood, level not specified; R56.9 Unspecified convulsions; I10 Essential (primary) hypertension; E03.9 Hypothyroidism, unspecified; G89.29 Other chronic pain; Z90.49 Acquired absence of other specified parts of digestive tract; Z98.51 Tubal ligation status; W18.39XA Other fall on same level, initial encounter; Y93.89 Activity, other specified; Y92.89 Other specified places as the place of occurrence of the external cause; Y99.8 Other external cause status
CPT/HCPCS: 36415; 70450; 70486; 72125; 72128; 72131; 73030; 80053; 80307; 81001; 81025; 85025; 96365; 99285; J1953; J7060

== ENCOUNTER 2021-07-08 05:43 | Emergency (ER) | payer SELFPAY ==
[~2021-07-08] VITALS: Ht 157.5 cm; Wt 90.9 kg
[2021-07-08 05:43] VITALS: BP 127/69
[~2021-07-08 05:43] MED LIST changes: +LEVE500T56 PO
--- NOTE | 2021-07-08 06:18 | ED.ADGEN ---
Past Medical History Past Medical History: Anxiety, Hypertension, Hypothyroid, Kidney Stone, S eizure, Other Additional Past Medical Histor: obesity, chronic back pain, dental pain Past Surgical History: Cholecystectomy, Tubal ligation, Other Additional Past Surgical Histo: D&C Smoking Status: Never Smoker Alcohol Use: Occasionally Drug Use: None General Adult EDM: Chief Complaint: EARACHE/EAR PAIN HPI: HPI: Patient is a 40 year old female coming in via EMS for left ear pain. Patient states she has been having chronic left ear pain over the past year since she had Covid. Was hospitalized 2 days ago for nausea vomiting. At times she was told that her pain was secondary to "wax". Patient states she is a little bit of drainage from her ear. Denies any tinnitus or hearing changes. Denies any fevers. Patient states she has been using Q-tips Review of Systems: Review of Systems: All other systems within normal limits except for as noted in the HPI Allergies: Allergies: Allergies Coded Allergies Type Severity Reaction Last Updated Verified No Known Drug Allergies 02/08/20 No Physical Exam: PE: Constitutional: Well developed, well nourished, no acute distress, non-toxic appearance. [] HENT: Normocephalic, atraumatic, bilateral external ears normal, nose normal. Right ear TM and canal normal, debris in left TM, visualized portion of TM normal. Pain with movement of pinnacle and tragus. No mastoid swelling [] Eyes: PERRLA, conjunctiva normal, no discharge. [] Neck: No rigidity, supple, no stridor. [] Cardiovascular: Regular rate and rhythm, brisk cap refill [] Lungs & Thorax: Non labored symmetric respirations, no tachypnea or respiratory distress [] Abdomen: Soft, nondistended. Skin: Warm, dry, no erythema, no rash. [] Back: Unremarkable Extremities: No deformities, range of motion grossly intact, no lower extremity edema [] Neurologic: Alert and oriented X 3, no focal deficits noted. [] Psychologic: Affect normal, judgement normal, mood normal. [] Current Patient Data: Vital Signs: Vital Signs Date Time Temp Pulse Resp B/P (MAP) Pulse Ox O2 Delivery O2 Flow Rate FiO2 07/08/21 05:43 98.5 89 24 127/69 (88) 100 Room Air 98.5 EKG: EKG: [] Heart Score: C/O Chest Pain: No Risk Factors: Risk Factors: DM, Current or recent (<one month) smoker, HTN, HLP, family history of CAD, obesity. Risk Scores: Score 0 - 3: 2.5% MACE over next 6 weeks - Discharge Home Score 4 - 6: 20.3% MACE over next 6 weeks - Admit for Clinical Observation Score 7 - 10: 72.7% MACE over next 6 weeks - Early Invasive Strategies Radiology/Procedures: Radiology/Procedures: [] Course & Med Decision Making: Course & Med Decision Making Pertinent Labs and Imaging studies reviewed. (See chart for details) [] Dragon Disclaimer: Dragon Disclaimer: This electronic medical record was generated, in whole or in part, using a voice recognition dictation system. Departure Departure Impression: Primary Impression: Left otitis externa Disposition: HOME / SELF CARE / HOMELESS Condition: STABLE Referrals: NO PCP (PCP) Patient Instructions: Otitis Externa Additional Instructions: Corticosporin eardrops: 4 drops in left ear every 8 hours for 7 days. DANILO PANCHAL MD Jul 08, 2021 06:18
[2021-07-08] MEDS: KETOROLAC 60 MG/2 ML VIAL. IM ONE (06:33)
[2021-07-08] MEDS: NEOMYCIN/POLYMYXIN/HC OTIC SUSPENSION 10ML BOTTLE. AS ONE (06:34)
== END 2021-07-08 06:59 | disposition home or self-care (01) ==
LOC: ER 05:43
DX: H60.91 Unspecified otitis externa, right ear (principal); I10 Essential (primary) hypertension; E03.9 Hypothyroidism, unspecified; G89.29 Other chronic pain
CPT/HCPCS: 96372; 99283; J1885